=== PATIENT | female | born 1960 | race Caucasian/White ===

== ENCOUNTER → 2019-09-30 13:58 | Outpatient (CLI) | payer OTHER, SELFPAY ==
--- NOTE | ~2019-09-30 | MMUS_ITS ---
EXAMINATION: MM diagnostic marisela LT w alba, US breast LT complete HISTORY: Six-month follow-up for probably benign left breast masses TECHNIQUE: Craniocaudal, mediolateral, and mediolateral oblique 3-D tomosynthesis images of the left breast were performed and synthetic 2-D images were generated. CAD analysis was submitted and interpr eted. High resolution limited left breast ultrasound was performed. COMPARISON: 02/16/2019, 02/01/2019, 12/26/2017, 12/16/2016 BREAST PARENCHYMAL COMPOSITION: There are scattered areas of fibroglandular density. FINDINGS: MAMMOGRAPHIC FINDINGS: A mass in the middle third of the inner breast at the 9:00 location 9 cm deep to the nipple is stable dating back to 2016, consistent with a benign finding. No suspicious mass, calcification, or archite ctural distortion are identified. ULTRASOUND: There is a stable 6 mm x 3 mm oval, circumscribed, parallel, hypoechoic mass with no posterior featur es or internal vascularity and central echogenicity at the 1:00 location 3.5 cm from the nipple. Ther e is a 5 mm x 2 mm mass with similar sonographic features at the 1:00 location 4 cm from the nipple. A 3 mm cyst is present at the 12:00 location 7.5 cm from the nipple. IMPRESSION: 1. Stable probably benign left breast masses. 2. Recommend 6 month follow-up left diagnostic mammogram and ultrasound. BI-RADS category 3, probably benign findings. Reviewed, dictated and finalized at location A. IMPRESSION: 1. Stable probably benign left breast masses. 2. Recommend 6 month follow-up left diagnostic mammogram and ultrasound. BI-RADS category 3, probably benign findings.
== END ==
PROVIDERS: PCP Internal Medicine; Visit Provider Obstetrics & Gynecology Gynecology
DX: R92.8 Other abnormal and inconclusive findings on diagnostic imaging of breast (principal)
CPT/HCPCS: 76641; 77061; 77065; G0279

== ENCOUNTER → 2020-04-03 14:04 | Outpatient (CLI) | payer OTHER, SELFPAY ==
--- NOTE | ~2020-04-03 | MMUS_ITS ---
EXAMINATION: MM diagnostic marisela BI w alba, US breast LT complete HISTORY: Follow-up left breast masses TECHNIQUE: Additional 3-D tomosynthesis images of the breasts were performed and synthetic 2-D images were generated. CAD analysis was submitted and interpreted. High resolution Limited left breast ultr asound was performed. COMPARISON: Comparison to multiple prior studies sequentially, with oldest reviewed study dated 10/18. BREAST PARENCHYMAL COMPOSITION: There are scattered areas of fibroglandular density. FINDINGS: MAMMOGRAPHIC FINDINGS: The right breast is stable without evidence for malignancy. There are asymmetries in the upper outer quadrant of the left breast with focal 11 mm mass in the upper outer quadrant. There is an adjacent s maller mass measuring approximately 8 mm. ULTRASOUND: Left breast ultrasound: At 1:00, 4 cm from the nipple there is a 3 mm cyst. At 12:00, 3 cm from the n ipple, there is an oval hypoechoic mass measuring 1 cm with internal cystic changes, possibly benign cluster of microcysts. At 2:00, 2 cm from the nipple, there is an oval hypoechoic mass measuring 7 mm No internal vascularity or posterior features. At 2:00, 6 cm from the nipple there is a hypoechoic m ass measuring 5 mm with antiparallel configurations. Slightly irregular margins with subtle posterior shadowing. IMPRESSION: 1. Slightly irregular 5 mm mass in the left breast with antiparallel configuration and shadowing. 2. Ultrasound-guided left breast biopsy recommended. BI-RADS category 4, suspicious findings. Reviewed, dictated and finalized at location A. OR PROGRAM ANALYST IMPRESSION: 1. Slightly irregular 5 mm mass in the left breast with antiparallel configurat ion and shadowing. 2. Ultrasound-guided left breast biopsy recommended. BI-RADS category 4, suspicious findings.
== END ==
PROVIDERS: PCP Internal Medicine; Visit Provider Nurse Practitioner
DX: N63.11 Unspecified lump in the right breast, upper outer quadrant (principal); N60.02 Solitary cyst of left breast; N63.21 Unspecified lump in the left breast, upper outer quadrant
CPT/HCPCS: 76641; 77062; 77066; G0279

== ENCOUNTER → 2021-09-16 15:56 | Outpatient (CLI) | payer BC, SELFPAY ==
--- NOTE | ~2021-09-16 | MM_ITS ---
EXAMINATION: MM screening marisela BI w alba HISTORY: Screening TECHNIQUE: Craniocaudal and mediolateral oblique 3-D tomosynthesis images were obtained and synthetic 2-D images were generated. CAD analysis was submitted and interpreted. COMPARISON: Comparison to multiple prior studies sequentially, with oldest reviewed study dated 12/16. BREAST PARENCHYMAL COMPOSITION: There are scattered areas of fibroglandular density. FINDINGS: There is a new focal asymmetry laterally in the right breast on CC view, middle third. The left breast is stable without evidence for malignancy. IMPRESSION: 1. New focal right breast asymmetry lateral aspect of the right breast on CC view. 2. Additional mammographic views and possible breast ultrasound are recommended. BI-RADS Category 0: Incomplete: Needs additional imaging evaluation. Reviewed, dictated and finalized at location A. IMPRESSION: 1. New focal right breast asymmetry lateral aspect of the right breast on CC vi ew. 2. Additional mammographic views and possible breast ultrasound are recommended . BI-RADS Category 0: Incomplete: Needs additional imaging evaluation.
== END ==
PROVIDERS: PCP Internal Medicine; Visit Provider Nurse Practitioner
DX: Z12.31 Encounter for screening mammogram for malignant neoplasm of breast (principal); R92.8 Other abnormal and inconclusive findings on diagnostic imaging of breast
CPT/HCPCS: 77063; 77067

== ENCOUNTER → 2021-09-27 07:49 | Outpatient (CLI) | payer BC, SELFPAY ==
--- NOTE | ~2021-09-27 | MMUS_ITS ---
EXAMINATION: MM diagnostic marisela RT w alba, US breast RT limited HISTORY: Follow-up right breast asymmetry TECHNIQUE: Additional 3-D tomosynthesis images of the right breast were performed and synthetic 2-D i mages were generated. CAD analysis was submitted and interpreted. High resolution Limited right breas t ultrasound was performed. COMPARISON: Comparison to multiple prior studies sequentially, with oldest reviewed study dated 09/29. BREAST PARENCHYMAL COMPOSITION: Breast composed of scattered areas of fibroglandular density FINDINGS: MAMMOGRAPHIC FINDINGS: There are no suspicious masses, calcifications or architectural distortion in the right breast to sug gest malignancy. ULTRASOUND: Limited right breast ultrasound: At 8:00, 4 cm from the nipple there is a 2 mm cyst. No suspicious ma sses to suggest malignancy. IMPRESSION: 1. No evidence for malignancy in the right breast. 2. Routine yearly screening mammogram and regular clinical breast examination are recommended. BI-RADS Category 2: Benign finding(s). Reviewed, dictated and finalized at location L. IMPRESSION: 1. No evidence for malignancy in the right breast. 2. Routine yearly screening mammogram and regular clinical breast examination a re recommended. BI-RADS Category 2: Benign finding(s).
== END ==
PROVIDERS: PCP Internal Medicine; Visit Provider Obstetrics & Gynecology Gynecology
DX: R92.8 Other abnormal and inconclusive findings on diagnostic imaging of breast (principal)
CPT/HCPCS: 76642; 77061; 77065; G0279

== ENCOUNTER → 2022-04-26 09:37 | Outpatient (CLI) | payer BC, SELFPAY ==
--- NOTE | ~2022-04-26 | XR_ITS ---
Clinical Indication: Chest pain PA and lateral views of the chest: Comparison: None Findings: The lungs are clear, without evidence of focal consolidation or pleural effusion. Cardiome diastinal silhouette is within normal limits. Bones and soft tissues are unremarkable. Impression: Normal chest. Reviewed, dictated and finalized at location . C[employer]IER [employer]P Impression: Normal chest.
== END ==
PROVIDERS: PCP Internal Medicine; Visit Provider Internal Medicine
DX: R07.89 Other chest pain (principal)
CPT/HCPCS: 71046

== ENCOUNTER → 2022-04-28 10:13 | Outpatient (CLI) | payer BC, SELFPAY ==
--- NOTE | ~2022-04-28 | CT_ITS ---
EXAMINATION: CTA chest PE protocol DATE: 04/28/2022 10:40 INDICATION: Chest pain TECHNIQUE: Computed tomography angiography (CTA) of the chest was performed with 100 mL Omnipaque-350 intravenous contrast timed to evaluate the pulmonary arteries. Coronal maximum intensity projection 3D-reconstructions were created by the technologist. The dose-length product (DLP) was 731.23 mGy-cm. Automated exposure control and iterative reconstruction technique were employed. COMPARISON: None. FINDINGS: The pulmonary arteries are moderately well-opacified. No pulmonary embolism is identified. There is mild atelectasis. No pleural effusion or pneumothorax. Calcified pulmonary nodules are consi stent with old granulomatous disease. No pathologically enlarged thoracic lymph nodes are identified. The heart size is normal. There is a small sliding hiatal hernia. Cholelithiasis is noted. There is moderate thoracic spondylosis. IMPRESSION: 1. No pulmonary embolism or acute cardiopulmonary abnormality. Reviewed, dictated and finalized at location B. R OPERATOR HELPER
[2022-04-28 10:30] LABS: Estimated Glomerular Filt Rate > 60
== END ==
PROVIDERS: PCP Internal Medicine; Visit Provider Internal Medicine
DX: R07.89 Other chest pain (principal)
CPT/HCPCS: 71275; Q9967

== ENCOUNTER → 2022-10-03 13:16 | Outpatient (CLI) | payer BC, SELFPAY ==
--- NOTE | ~2022-10-03 | MM_ITS ---
EXAMINATION: MM screening marisela BI w alba HISTORY: Screening mammogram TECHNIQUE: Craniocaudal and mediolateral oblique 3-D tomosynthesis images were obtained and synthetic 2-D images were generated. CAD analysis was submitted and interpreted. COMPARISON: 09/27/2021 diagnostic right mammogram and limited right breast ultrasound 09/16/2021 bilateral screening mammogram 04/03/2020 diagnostic left mammogram and left complete ultrasound 02/01/2019 bilateral screening mammogram BREAST PARENCHYMAL COMPOSITION: There are scattered areas of fibroglandular density. FINDINGS: There is no evidence of suspicious mass, calcification, or architectural distortion to sugg est malignancy in either breast. There has been no suspicious interval change. IMPRESSION: 1. No mammographic evidence of malignancy. 2. Recommend routine screening mammography in one year. BI-RADS Category 1: Negative Reviewed, dictated and finalized at location A.
--- NOTE | ~2022-10-03 | DEXA_ITS ---
Bone Density Report Name: CURRY CHEEMA Age: 62 Sex: Female Ethnicity: White Date of : 1960 Indication: postmenopausal; screening for osteoporosis; height loss; Referring Provider: HAYLEY VELASCO Study: Bone densitometry was performed. Exam Date: October 03, 2022 Accession number: [id number] Bone Density: Region BMD T-score Z-score Classification AP Spine (L1-L4) 1.102 0.5 2.0 Normal Femoral Neck (Left) 1.142 2.6 4.0 Normal Total Hip (Left) 1.211 2.2 3.2 Normal Femoral Neck (Right) 1.102 2.3 3.6 Normal Total Hip (Right) 1.187 2.0 3.0 Normal Total Hip Mean 1.199 2.1 3.1 Normal World Health Organization criteria for BMD impression classify patients as: Normal (T-score at or above -1.0), Osteopenia (T-score between -1.0 and -2.5), or Osteoporosis (T-score at or below -2.5). 10-year Fracture Risk: FRAX not reported because: All T-scores for Spine Total, Hip Total, Femoral Neck at or above -1.0 Previous Exams: Region Exam Age BMD T-score BMD Change BMD Change Date g/cm2 vs Baseline vs Previous AP Spine(L1-L4) 10/03/2022 62 1.102 0.5 -0.055 -0.006 12/26/2017 57 1.108 0.6 -0.049 -0.049 10/12/2014 54 1.157 1.0 Total Hip(Left) 10/03/2022 62 1.211 2.2 -0.061 0.012 12/26/2017 57 1.199 2.1 -0.074 -0.074 10/12/2014 54 1.273 2.7 Total Hip(Right) 10/03/2022 62 1.187 2.0 -0.009 0.029* 12/26/2017 57 1.158 1.8 -0.038 -0.038 10/12/2014 54 1.196 2.1 *Denotes significance at 95% confidence level, LSC for AP Spine = 0.022 g/cm2, LSC for Total Hip = 0.027 g/cm2 Clinical Information Provided by Patient: Has used the following medications: Vitamin D, Calcium, MTV Patient maximum height was 69 Menopause Age: 55 No regular weight bearing exercise Does not regularly consume dairy products Drinks caffeinated beverages Onset of menses at age 15 Number of children 2 Impression: The patient has normal bone mass. No significant bone loss was observed. Discussion: BONE DENSITY IS ABOVE THE MINIMUM DESIRABLE LEVEL AT ALL SKELETAL SITES TESTED. This patient?s bone mineral density is above the minimum desirable level (T-score -1.0 or better) at all sites measured. The patient should follow a healthful lifestyle (good nutrition with adequate calcium and vitamin D, and appropriate weight-bearing exercise).
== END ==
PROVIDERS: PCP Internal Medicine; Visit Provider Advanced Practice Midwife
DX: Z12.31 Encounter for screening mammogram for malignant neoplasm of breast (principal); Z78.0 Asymptomatic menopausal state
CPT/HCPCS: 77063; 77067; 77080

== ENCOUNTER 2023-10-06 15:30 | Outpatient (CLI) | payer BC, SELFPAY ==
--- NOTE | ~2023-10-06 | MM_ITS ---
EXAMINATION: MM screening marisela BI w alba HISTORY: Screening TECHNIQUE: Craniocaudal and mediolateral oblique 3-D tomosynthesis images were obtained and synthetic 2-D images were generated. CAD analysis was submitted and interpreted. COMPARISON: Comparison to multiple prior studies sequentially, with oldest reviewed study dated 01/22. BREAST PARENCHYMAL COMPOSITION: Not dense: There are scattered areas of fibroglandular density. FINDINGS: There is no evidence of suspicious mass, calcification, or architectural distortion to sugg est malignancy in either breast. There has been no suspicious interval change. IMPRESSION: 1. No mammographic evidence of malignancy. 2. Recommend routine screening mammography in one year. BI-RADS Category 1: Negative Reviewed, dictated and finalized at location B.
== END 2023-10-06 15:31 ==
LOC: MICIMG 15:31
PROVIDERS: PCP Nurse Practitioner; Visit Provider Nurse Practitioner
DX: Z12.31 Encounter for screening mammogram for malignant neoplasm of breast (principal)
CPT/HCPCS: 77063; 77067

== ENCOUNTER 2024-10-11 08:20 | Outpatient (CLI) | payer BC, SELFPAY ==
--- NOTE | ~2024-10-11 | US_ITS ---
Exam: US aorta - 10/11/2024 8:26 CDT History: 64 years old Female with nicotine dependence Technique: Sonography of the abdominal aorta and proximal common iliac arteries was performed. Color Doppler was used. Comparison: None available. Findings: No abdominal aortic aneurysm seen. The right common iliac artery measures 1.3 cm. The left common iliac artery measures 1.2 cm. IMPRESSION: No aneurysm seen. Reviewed, dictated and finalized at location A. IMPRESSION: No aneurysm seen.
== END 2024-10-11 08:21 | disposition home or self-care (01) ==
PROVIDERS: PCP Internal Medicine; Visit Provider Internal Medicine
DX: F17.211 Nicotine dependence, cigarettes, in remission (principal)
CPT/HCPCS: 76775

== ENCOUNTER 2024-10-14 11:45 | Outpatient (CLI) | payer BC, SELFPAY ==
--- NOTE | ~2024-10-14 | CT_ITS ---
CLINICAL INDICATION: Nicotine dependence COMPARISON: 04/28/2022. TECHNIQUE: Multiple contiguous axial images of the chest was performed without the administration of intravenous contrast. This CT examination was performed utilizing dose reduction techniques. DLP: 281 mGy-cm FINDINGS/OBSERVATIONS: LUNG:Trace cylindrical bronchiectasis, an interval change The lungs are otherwise clear. HEART: The heart is of normal size, without pericardial effusion. MEDIASTINUM: No pathologically enlarged or morphologically suspicious lymph nodes are identified within the medias tinum, bilateral axilla, within the soft tissues of the anterior chest wall. SOFT TISSUES OF THE CHEST: Unremarkable. BONES OF THE CHEST: No acute fracture. No lytic or blastic lesions are identified. UPPER ABDOMEN: Multiple stones within the gallbladder, which is otherwise unremarkable. IMPRESSION: Lung-RADS category 1: Negative. Continue annual screening with noncontrast low-dose chest CT in 12 mo nths. Cholelithiasis Interval development of cylindrical bronchiectasis. Reviewed, dictated and finalized at location A. IMPRESSION: Lung-RADS category 1: Negative. Continue annual screening with noncontrast low- dose chest CT in 12 months. Cholelithiasis Interval development of cylindrical bronchiectasis.
--- NOTE | ~2024-10-14 | DEXA_ITS ---
Bone Density Report Name: CURRY CHEEMA Age: 64 Sex: Female Ethnicity: White Date of : 1960 Indication: postmenopausal; screening for osteoporosis; height loss; Referring Provider: Anny, Yajaira Study: Bone densitometry was performed. Exam Date: October 14, 2024 Accession number: [id number] Bone Density: Region BMD T-score Z-score Classification AP Spine(L1, L2, L3) 1.087 0.6 2.3 Normal Femoral Neck (Left) 1.057 1.9 3.3 Normal Total Hip (Left) 1.218 2.3 3.4 Normal Femoral Neck (Right) 1.066 2.0 3.4 Normal Total Hip (Right) 1.205 2.2 3.3 Normal Femoral Neck Mean 1.062 1.9 3.4 Normal Total Hip Mean 1.212 2.2 3.4 Normal World Health Organization criteria for BMD impression classify patients as: Normal (T-score at or above -1.0), Osteopenia (T-score between -1.0 and -2.5), or Osteoporosis (T-score at or below -2.5). 10-year Fracture Risk: FRAX not reported because: All T-scores for Spine Total, Hip Total, Femoral Neck at or above -1.0 Clinical Information Provided by Patient: Has used the following medications: Vitamin D, Calcium, multi Patient maximum height was 70 Menopause Age: 64 Does not regularly consume dairy products Drinks caffeinated beverages Onset of menses at age 15 Number of children 2 Impression: The patient has normal bone mass. Discussion: LOW RISK OF FRACTURE; BONE DENSITY IS WELL ABOVE THE MINIMUM DESIRABLE LEVEL AND ABOVE AVERAGE FOR AGE AND SEX AT ALL SKELETAL SITES TESTED. This person's bone density is above expected limits for age and sex. This is rarely clinically significant, but should be pursued if there are significant musculoskeletal complaints. The patient should follow a healthful lifestyle (good nutrition with adequate calcium and vitamin D, and appropriate weight-bearing exercise). Follow-Up: Consider repeating this study in 5 years or sooner if there is some new clinical indication. Reported by: PAOLA on 10/17/2024 11:07:00 AM. Reviewed, dictated and finalized at location A.
--- NOTE | ~2024-10-14 | MM_ITS ---
EXAMINATION: MM screening marisela BI w alba HISTORY: Screening TECHNIQUE: Craniocaudal and mediolateral oblique 3-D tomosynthesis images were obtained and synthetic 2-D images were generated. CAD analysis was submitted and interpreted. COMPARISON: Comparison to multiple prior studies sequentially, with oldest reviewed study dated 09/29. BREAST PARENCHYMAL COMPOSITION: Not Dense: The breasts are almost entirely fatty. FINDINGS: Developing focal asymmetry in the upper outer quadrant of the right breast, middle third. T he left breast is stable without evidence for malignancy. IMPRESSION: 1. Developing right breast asymmetry, upper outer quadrant, middle third. 2. Additional mammographic views and possible breast ultrasound are recommended. BI-RADS Category 0: Incomplete: Needs additional imaging evaluation. Reviewed, dictated and finalized at location A. IMPRESSION: 1. Developing right breast asymmetry, upper outer quadrant, middle third. 2. Additional mammographic views and possible breast ultrasound are recommended . BI-RADS Category 0: Incomplete: Needs additional imaging evaluation.
--- OUTSIDE RECORDS SUMMARY | 2024-10-14 11:50 | XMS_ITS | Data Portability ---
Author Organization [facility], [employer] Address [address] [address] Assessment Encounter Date Assessment Date Assessment LastModified by Organization Details LastModified Time 12/03/2022 12/03/2022 Patient presente d for follow up. Studies ordered as below. Discussed plan with patient/caregiver , who expressed understanding. Follow up as noted below. Not available 12/03/2022 14:11:45 08/11/2023 08/11/2023 Patient presente d for follow up. Studies ordered as below. Discussed plan with patient/caregiver , who expressed understanding. Follow up as noted below. Not available 08/11/2023 09:35:03 2024 2024 Recommends healthy nutrition, including a diet rich in fruits and vegetables, minimizing simple carbohydrates, salt, and saturated fats. Encouraged regular cardiovascular exercise such as walking at least 30 minutes daily, 5 times per week. Not available 2024 10:32:55 09/20/2024 09/20/2024 Recommends healthy nutrition, including a diet rich in fruits and vegetables, minimizing simple carbohydrates, salt, and saturated fats. Encouraged regular cardiovascular exercise such as walking at least 30 minutes daily, 5 times per week. Not available 09/20/2024 09:59:01 Plan of Treatment Reminders Order Date Submit Date Provider Last Modified By Organization Details Last Modified Time Details Appointments ESTABLISH ED PATIENT 15 2024 10:45A Remi Blount MD Not available Not available Not available Lab lipid panel, serum 2024 025 [id number] Qoiza [facility], [facility] [address], [place], [address], 09/27/2024 08:09:35 CMP, serum or plasma 2024 025 [place] [address] [facility], [address], [address], [place], [address], 09/27/2024 08:09:36 microalbu min/creat inine, mass ratio, urine 2024 025 [place] [address] [facility], [address], [place], [address], 09/27/2024 08:09:36 TSH + free T4, serum 2024 025 [place] [address] [facility], [address], [place], [address], 09/27/2024 08:09:36 T3, free, serum or plasma 2024 025 [place] [address] [facility], [address], [place], [address], 09/27/2024 08:09:36 CBC w/ auto diff 2024 025 [facility], [address], [place], [address], 09/27/2024 08:09:36 microalbu min/creat inine, mass ratio, urine 2023 025 [facility], [address], [place], [address], 09/18/2024 08:52:43 TSH + free T4, serum 2023 025 [facility], [address], [place], [address], 09/18/2024 08:52:44 T3, free, serum or plasma 2023 025 ST[facility], [address], [address], [place], [address], 09/18/2024 08:52:46 CBC w/ auto diff 2023 025 [facility]ISH [facility], [address], [address], [place], [address], 09/18/2024 08:52:45 lipid panel, serum 2023 025 [facility], [address], [address], [place], [address], 09/18/2024 08:52:42 CMP, serum or plasma 2023 025 [facility], [address], [address], [place], [address], 09/18/2024 08:52:45 microalbu min/creat inine, mass ratio, urine 2023 024 [facility], [address], [address], [place], [address], 08/18/2023 08:49:20 TSH + free T4, serum 2023 024 [facility], [address], [address], [place], [address], 08/18/2023 08:49:21 T3, free, serum or plasma 2023 024 [facility], [address], [address], [place], [address], 08/18/2023 08:49:21 CBC w/ auto diff 2023 024 [facility], [address], [address], [place], [address], 08/18/2023 08:49:21 lipid panel, serum 2023 024 [facility], [address], [address], [place], [address], 08/18/2023 08:49:20 CMP, serum or plasma 2023 024 [facility], [address], [address], [place], [address], 08/18/2023 08:49:20 lipid panel, serum 2022 023 [facility], [address], [address], [place], [address], 12/10/2022 08:18:01 CMP, serum or plasma 2022 023 [facility], [address], [address], [place], [address], 12/10/2022 08:18:01 vitamin D, 25-hydrox y, total, serum 2022 023 [facility], [address], [address], [place], [address], 12/10/2022 08:18:01 microalbu min/creat inine, mass ratio, urine 2022 023 [facility], [address], [place], [address], 12/10/2022 08:18:01 TSH + free T4, serum 2022 023 [facility], [address], [place], [address], 12/10/2022 08:18:02 T3, free, serum or plasma 2022 023 [facility], [address], [place], [address], 12/10/2022 08:18:02 HIV 1+2 Ab + HIV1 p24 Ag, quantitat jose armando immunoass ay, serum 2022 023 jessica Qoiza [facility], [address], [address], [place], [address], 12/10/2022 08:18:01 Referral gastroent erologist referral 2023 024 jessica Sevilla MD, [address], [place], [address], 2024 10:48:05 gastroent erologist referral 2023 024 iggy Sevilla MD, [address], [address], [place], [address], 08/11/2023 09:52:06 gastroent erologist referral 2022 023 SHARIF Sevilla MD, [address], [address], [place], [address], 01/04/2023 18:08:50 Procedures None recorded. Surgeries None recorded. Imaging LDCT, chest, for lung cancer screening [address] [facility], [address], [place], [address], 09/27/2024 08:09:27 US, abdomen + pelvis [address] [facility], [address], [address], [place], [address], 09/27/2024 08:09:27 bone density [address] [facility], [address], [place], [address], 10/04/2024 08:09:16 bone density 2022 023 [facility], [address], [place] [address], [place], [address], 12/17/2022 09:21:54 Medication Orders rosuvasta tin 10 mg tablet 2024 025 [facility] [address], [address] [place] [address], [address], 09/20/2024 10:23:47 metformin ER 500 mg tablet,ex tended release 24 hr 2024 025 [facility] [address], [address] [place] [address], [address], 09/20/2024 10:23:48 losartan 50 mg tablet 2024 025 [facility] [address], [address] [place] [address], [address], 09/20/2024 10:23:48 amlodipin e 5 mg tablet 2024 025 [facility] [address], [address] [place] [address], [address], 09/20/2024 10:23:47 metformin ER 500 mg tablet,ex tended release 24 hr 2023 024 [facility] [address], [address] [place] [address], [address], 2024 10:45:26 losartan 50 mg tablet 2023 024 [place] [address], [address] [place] [address], [address], 2024 10:44:27 amlodipin e 5 mg tablet 2023 024 [facility] [address], [address] [place] [address], [address], 2024 10:44:26 rosuvasta tin 10 mg tablet 2023 024 [facility] [address], [address] [place] [address], [address], 2024 10:44:24 losartan 50 mg tablet 2023 024 [facility] [address], [address] [place] [address], [address], 08/11/2023 09:35:18 amlodipin e 5 mg tablet 2023 024 [facility] [address], [address] [place] [address], [address], 08/11/2023 09:35:21 levothyro xine 137 mcg tablet [address], [address] [place] [address], [address], 03/23/2024 20:39:48 rosuvasta tin 10 mg tablet 2023 024 [facility] [address], [address] [place] [address], [address], 08/11/2023 09:35:17 rosuvasta tin 10 mg tablet 2022 023 [facility], [address] [place] [address], [address], 12/03/2022 14:12:26 losartan 50 mg tablet 2022 023 [facility] [address], [address] [place] [address], [address], 12/03/2022 14:12:25 amlodipin e 5 mg tablet 2022 023 [facility] [address], [address] [place] [address], [address], 12/03/2022 14:12:25 levothyro xine 137 mcg tablet 2022 023 [facility], [address] [facility], [place], [address], 03/23/2024 20:39:48 Patient TargetsNo targets recorded. Patient Instructions Encounter Date Encounter Id Patient Instructions Last Modified By Organization Details Last Modified Time 12/03/2022 [id number] advised to lose weight Not available 12/03/2022 14:12:04 08/11/2023 [id number] advised to lose weight Not available 08/11/2023 09:35:10 2024 [id number] advised to lose weight Not available 2024 10:44:09 09/20/2024 [id number] advised to lose weight Not available 09/20/2024 10:23:35 pre/post bronchodilator spirometry* SHARIF Not available 09/20/2024 11:34:00 Reason for Referral Distribution Operation Supervisor Referral for Screening for malignant neoplasm of colon Referring Physician: Augustus Blount, Internal Medicine, Encounter Date: 12/03/2022 Distribution Operation Supervisor Referral for Screening for malignant neoplasm of colon Referring Physician: Augustus Blount Internal Medicine, Encounter Date: 08/11/2023 Distribution Operation Supervisor Referral for Screening for malignant neoplasm of colon Referring Physician: Augustus Blount Internal Medicine, Encounter Date: 2024 Results Created Date Observation Date Name Description Value Unit Range Abnormal Flag Note LastModifiedBy Organization Detail LastModifiedTime 04/26/1904/27/2022 LIPID PANEL WITH REFLE X TO DIREC T LDL cholesterol, total 204 mg/dL <200 high Not Available [facility] [address] [place], [address], 04/27/2022 16:01:11 04/26/1904/27/2022 LIPID PANEL WITH REFLE X TO DIREC T LDL HDL cholesterol 64 mg/dL > or = 50 normal Not Available Qoiza [facility] [address] [place], [address], 04/27/2022 16:01:11 04/26/19 23 04/27/2022 LIPID PANEL WITH REFLE X TO DIREC T LDL triglyceride s 77 mg/dL <150 normal Not Available [place] [id number] [place], [address], 04/27/2022 16:01:11 04/26/19 23 04/27/2022 LIPID PANEL WITH REFLE X TO DIREC T LDL LDL-choleste rol 123 mg/dL _(leyla c) high Refer ence range : <100 Misty able range <100 mg/dL for prima ry preve ntion ; <70 mg/dL for patie nts with CHD or diabe tic patie nts with > or = 2 CHD risk facto rs. LDL-C is now calcu lated using the Honey n-Hop kins calcu maddy n, which is a valid ated novel ruben haynesi yuko stephenste r accur acy than the Fried michael equat ion in the estim ation of LDL-C . Honey asencio SS et al. RICHMOND. 2013; 310(1 9): 2061- 2068 (http ://ed ucati on.Qu K[facility]. com/f aq/FA Q164) Not Available [place] [id number] [place], [address], 04/27/2022 16:01:11 04/26/19 23 04/27/2022 LIPID PANEL WITH REFLE X TO DIREC T LDL chol/HDLC ratio 3.2 (calc ) <5.0 normal Not Available [facility] [address] [place] [address], [address], 04/27/2022 16:01:11 04/26/19 23 04/27/2022 LIPID PANEL WITH REFLE X TO DIREC T LDL non HDL cholesterol 140 mg/dL _(leyla c) <130 high For patie nts with diabe rizwana plus 1 major ASCVD risk facto r, treat ing to a non-H DL-C goal of <100 mg/dL (LDL- C of <70 mg/dL ) is consi dered a thera peuti c optio n. Not Available [place] [address] [place], [address], 04/27/2022 16:01:11 04/26/19 23 04/27/2022 ALBUM IN, RANDO M URINE W/CRE ATINI NE creatinine, random urine 174 mg/dL 20-275 normal Not Available [place] [address] [place], [address], 04/27/2022 16:01:12 04/26/19 23 04/27/2022 ALBUM IN, RANDO M URINE W/CRE ATINI NE albumin, urine 0.6 mg/dL see note: normal Refer ence Range : Refer ence Range Not estab lishe d Not Available [place] [address] [place], [address], 04/27/2022 16:01:12 04/26/19 23 04/27/2022 ALBUM IN, RANDO M URINE W/CRE ATINI NE albumin/crea tinine ratio, random urine 3 mcg/m g_cre at <30 normal The ADA defin es abnor malit ies in album in excre tion as follo ws: Album inuri a Categ ory Resul t (mcg/ mg creat inine ) Mariam l to Mildl y incre ased <30 Moder ately incre ased 30-29 9 Sever km incre ased > OR = 300 The ADA recom mends that at least two of three speci mens colle cted withi n a 3-6 month perio d be abnor mal befor e consi benjamin g a patie nt to be withi n a diagn ostic categ ory. Not Available [address], [address], 04/27/2022 16:01:12 04/26/19 23 04/27/2022 TSH+F REE T4 TSH 2.03 mIU/L 0.40-4 .50 normal Not Available [address], [address], 04/27/2022 16:01:13 04/26/19 23 04/27/2022 TSH+F REE T4 T4, free 1.3 NG/dL 0.8-1. 8 normal Not Available [address], [address], 04/27/2022 16:01:13 04/26/19 23 04/27/2022 COMPR EHENS JOSE ARMANDO METAB OLIC PANEL glucose 94 mg/dL 65-99 normal Fasti ng refer ence inter nehal Not Available [address], [address], 04/27/2022 16:01:14 04/26/19 23 04/27/2022 COMPR EHENS JOSE ARMANDO METAB OLIC PANEL urea nitrogen (BUN) 9 mg/dL 7-25 normal Not Available [address], [address], 04/27/2022 16:01:14 04/26/19 23 04/27/2022 COMPR EHENS JOSE ARMANDO METAB OLIC PANEL creatinine 0.87 mg/dL 0.50-1 .05 normal Not Available [address], [address], 04/27/2022 16:01:14 04/26/19 23 04/27/2022 COMPR EHENS JOSE ARMANDO METAB OLIC PANEL eGFR 76 mL/mi n/1.7 3m2 > or = 60 normal The eGFR is based on the CKD-E PI 2020 equat ion. To calcu late the new eGFR from a previ ous Creat inine or Cysta tin C resul t, go to https ://andreas jenkins/robb garcia/ kdoqi /gfr% 5Fcal culat or Not Available [address], [address], 04/27/2022 16:01:14 04/26/19 23 04/27/2022 COMPR EHENS JOSE ARMANDO METAB OLIC PANEL BUN/creatini ne ratio NOT APPLIC ABLE (calc ) 6-22 Not Available [address], [address], 04/27/2022 16:01:14 04/26/19 23 04/27/2022 COMPR EHENS JOSE ARMANDO METAB OLIC PANEL sodium 140 mmol/ L 135-14 6 normal Not Available [address], [address], 04/27/2022 16:01:14 04/26/19 23 04/27/2022 COMPR EHENS JOSE ARMANDO METAB OLIC PANEL potassium 4.3 mmol/ L 3.5-5. 3 normal Not Available [address], [address], 04/27/2022 16:01:14 04/26/19 23 04/27/2022 COMPR EHENS JOSE ARMANDO METAB OLIC PANEL chloride 107 mmol/ L 98-110 normal Not Available [address], [address], 04/27/2022 16:01:14 04/26/19 23 04/27/2022 COMPR EHENS JOSE ARMANDO METAB OLIC PANEL carbon dioxide 27 mmol/ L 20-32 normal Not Available [address], [address], 04/27/2022 16:01:14 04/26/19 23 04/27/2022 COMPR EHENS JOSE ARMANDO METAB OLIC PANEL calcium 9.3 mg/dL 8.6-10 .4 normal Not Available [address], [address], 04/27/2022 16:01:14 04/26/19 23 04/27/2022 COMPR EHENS JOSE ARMANDO METAB OLIC PANEL protein, total 6.5 g/dL 6.1-8. 1 normal Not Available [address], [address], 04/27/2022 16:01:14 04/26/19 23 04/27/2022 COMPR EHENS JOSE ARMANDO METAB OLIC PANEL albumin 4.3 g/dL 3.6-5. 1 normal Not Available [address], [address], 04/27/2022 16:01:14 04/26/19 23 04/27/2022 COMPR EHENS JOSE ARMANDO METAB OLIC PANEL globulin 2.2 g/dL_ (calc ) 1.9-3. 7 normal Not Available [address], [address], 04/27/2022 16:01:14 04/26/19 23 04/27/2022 COMPR EHENS JOSE ARMANDO METAB OLIC PANEL albumin/glob ulin ratio 2.0 (calc ) 1.0-2. 5 normal Not Available [address], [place], [address], 04/27/2022 16:01:14 04/26/19 23 04/27/2022 COMPR EHENS JOSE ARMANDO METAB OLIC PANEL bilirubin, total 0.6 mg/dL 0.2-1. 2 normal Not Available [address], [address], 04/27/2022 16:01:14 04/26/19 23 04/27/2022 COMPR EHENS JOSE ARMANDO METAB OLIC PANEL alkaline phosphatase 78 U/L 37-153 normal Not Available [place] [address] [place], [address], 04/27/2022 16:01:14 04/26/19 23 04/27/2022 COMPR EHENS JOSE ARMANDO METAB OLIC PANEL AST 21 U/L 10-35 normal Not Available [address], [address], 04/27/2022 16:01:14 04/26/19 23 04/27/2022 COMPR EHENS JOSE ARMANDO METAB OLIC PANEL ALT 25 U/L 6-29 normal Not Available [address], [address], 04/27/2022 16:01:14 04/26/19 23 04/27/2022 D-DIM ER, QUANT ITATI VE D-dimer, quantitative 0.60 mcg/m L_feu <0.50 high The D-Dim er test is used frequ ently to exclu de an acute PE or DVT. In patie nts with a low to moder ate clini leyla risk asses sment and a D-Dim er resul t <0.50 mcg/m L FEU, the likel ihood of a PE or DVT is very low. Howev er, a throm boemb olic event shoul d not be exclu ded solel y on the basis of the D-Dim er level . Incre ased level s of D-Dim er are assoc iated with a PE, DVT, DIC, malig cely es, infla mmati on, sepsi s, surge ry, traum a, pregn flakito, and advan cing patie nt age. [[place] 2006 11:29 5(2): 199-2 07] For addit ional infor edel chu refer to: http: //darius holman gnost ics.c om/fa q/FAQ 149 (This link is being provi ded for infor costa lara/ tristian odonnell purpo ses only) Not Available [facility] [address] [place], [address], 04/27/2022 16:01:14 04/26/19 23 04/27/2022 T3, FREE T3, free 3.0 pg/mL 2.3-4. 2 normal Not Available [facility] [address], [address], 04/27/2022 16:01:15 04/26/19 23 04/27/2022 VITAM IN D,25- OH,TO THIERRY,I A vitamin D,25-oh,tota l,ia 39 NG/mL 30-100 normal Vitam in D Statu s 25-OH Vitam in D: Defic iency : <20 ng/mL Insuf ficie ncy: 20 - 29 ng/mL Optim al: > or = 30 ng/mL For 25-OH Vitam in D testi ng on patie nts on D2-mc pplem entat ion and patie nts for whom quant itati on of D2 and D3 fract ions is requi red, the [facility] Assur eD(TM ) 25-OH VIT D, (D2,D 3), LC/MS /MS is recom gamal d: order code [id number] (dianne ents >2yrs ). See Note 1 Note 1 For addit ional infor edel chu refer to http: //[facility] leena asencio.Brandon stDia gnost ics.c om/fa q/FAQ 199 (This link is being provi ded for infor costa lara/ tristian odonnell purpo ses only. ) Not Available [facility] [email or web address] [facility] [address] [place], [address], 04/27/2022 16:01:15 04/26/19 23 04/27/2022 HEMOG LOBIN A1C hemoglobin A1C 5.2 %_of_ total _HGB <5.7 normal For the purpo se of john navarro for the prese nce of diabe rizwana: <5.7% Consi stent with the absen ce of diabe rizwana 5.7-6 .4% Consi stent with incre ased risk for diabe rizwana (pred iabet es) > or =6.5% Consi stent with diabe rizwana This assay resul t is consi stent with a decre ased risk of diabe rizwana. Curre ntly, no conse nsus exist s merline huntley use of hemog lobin A1c for diagn osis of diabe rizwana in child carla. Accor ding to Ameri can Diabe rizwana Assoc iatio n (ADA) guide lines , hemog lobin A1c <7.0% repre sents optim al contr ol in non-p regna nt diabe tic patie nts. Diffe rent metri cs may apply to speci fic patie nt popul ation s. [facility] al [facility] in Diabe rizwana(A DA). Not Available [facility] [address] [address] [place], [address], 04/27/2022 16:01:16 06/10/19 23 06/09/2022 justin metry testi ng* Spirometry Not Available [facility], [facility] [address], [place], [address], 05/14/2022 13:54:46 12/14/19 23 12/14/2022 LIPID PANEL , STAND CHLOE cholesterol, total 127 mg/dL <200 normal Not Available [facility] [address] [address] [place], [address], 12/14/2022 16:08:08 12/14/19 23 12/14/2022 LIPID PANEL , STAND CHLOE HDL cholesterol 51 mg/dL > or = 50 normal Not Available [facility] [address] [address] [place], [address], 12/14/2022 16:08:08 12/14/19 23 12/14/2022 LIPID PANEL , STAND CHLOE triglyceride s 90 mg/dL <150 normal Not Available [facility] [place] [address] [address] [place], [address], 12/14/2022 16:08:08 12/14/19 23 12/14/2022 LIPID PANEL , STAND CHLOE LDL-choleste rol 59 mg/dL _(leyla c) normal Refer ence range : <100 Misty able range <100 mg/dL for prima ry preve ntion ; <70 mg/dL for patie nts with CHD or diabe tic patie nts with > or = 2 CHD risk facto rs. LDL-C is now calcu lated using the Honey n-Hop kins calcu latpily n, which is a valid ated novel metho d provi ding usha r accur acy than the Fried michael equat ion in the estim ation of LDL-C . Honey asencio SS et al. RICHMOND. 2013; 310(1 9): 2061- 2068 (http ://ed ucati on.Kuldip kahnMadison Plus Select / HeyGorgeous.com. com/f aq/FA Q164) Not Available [address], [address], 12/14/2022 16:08:08 12/14/19 23 12/14/2022 LIPID PANEL , STAND CHLOE chol/HDLC ratio 2.5 (calc ) <5.0 normal Not Available [address], [place], [address], 12/14/2022 16:08:08 12/14/1912/14/2022 LIPID PANEL , STAND CHLOE non HDL cholesterol 76 mg/dL _(leyla c) <130 normal For patie nts with diabe rizwana plus 1 major ASCVD risk facto r, treat ing to a non-H DL-C goal of <100 mg/dL (LDL- C of <70 mg/dL ) is consi dered a thera peuti c optio n. Not Available [place] [address] [place], [address], 12/14/2022 16:08:08 12/14/19 23 12/14/2022 ALBUM IN, RANDO M URINE W/CRE ATINI NE creatinine, random urine 88 mg/dL 20-275 normal Not Available [place] [address] [place], [address], 12/14/2022 16:08:09 12/14/1912/14/2022 ALBUM IN, RANDO M URINE W/CRE ATINI NE albumin, urine 1.1 mg/dL see note: normal Refer ence Range : Refer ence Range Not estab lishe d Not Available [place] [address] [place], [address], 12/14/2022 16:08:09 12/14/19 23 12/14/2022 ALBUM IN, RANDO M URINE W/CRE ATINI NE albumin/crea tinine ratio, random urine 13 mcg/m g_cre at <30 normal The ADA defin es abnor malit ies in album in excre tion as follo ws: Album inuri a Categ ory Resul t (mcg/ mg creat inine ) Mariam l to Mildl y incre ased <30 Moder ately incre ased 30-29 9 Sever km incre ased > OR = 300 The ADA recom mends that at least two of three speci mens colle cted withi n a 3-6 month perio d be abnor mal befor e consi benjamin g a patie nt to be withi n a diagn ostic categ ory. Not Available [facility] [address] [facility] [place], [address], 12/14/2022 16:08:09 12/14/1912/14/2022 HIV 1/2 ANTIG EN/AN TIBOD Y,FOU RTH GENER ATION W/RFL HIV Ag/Ab, 4TH gen NON-RE ACTIVE non-re active normal HIV-1 antig en and HIV-1 /HIV- 2 antib odies were not detec maria esther. There is no labor atory evide nce of HIV infec tion. PLEAS E NOTE: This infor matio n has been discl osed to you from recor ds whose confi denti ality may be prote cted by state law. If your state requi res such prote ction , then the state law prohi bits you from eileen g any furth er discl osure of the infor matio n witho ut the speci fic writt en conse nt of the perso n to whom it perta ins, or as other byrd permi tted by law. A gener al autho rizat ion for the relea se of medic al or other infor matio n is NOT suffi cient for this purpo se. For addit ional infor matio n pleas e refer to http: //edu leena asencio.que stdia gnost ics.c om/fa q/FAQ 106 (This link is being provi ded for infor matio nal/ educa romero l purpo ses only. ) The perfo rmanc e of this assay has not been clini destiney valid ated in patie nts less than 2 years old. Not Available [address], [address], 12/14/2022 16:08:10 12/14/19 23 12/14/2022 TSH+F REE T4 TSH 2.55 mIU/L 0.40-4 .50 normal Not Available [facility] [address], [address], 12/14/2022 16:08:11 12/14/1912/14/2022 TSH+F REE T4 T4, free 1.2 NG/dL 0.8-1. 8 normal Not Available [address], [address], 12/14/2022 16:08:11 12/14/19 23 12/14/2022 COMPR EHENS JOSE ARMANDO METAB OLIC PANEL glucose 85 mg/dL 65-99 normal Fasti ng refer ence inter nehal Not Available [address], [address], 12/14/2022 16:08:12 12/14/19 23 12/14/2022 COMPR EHENS JOSE ARMANDO METAB OLIC PANEL urea nitrogen (BUN) 10 mg/dL 7-25 normal Not Available [address], [address], 12/14/2022 16:08:12 12/14/1912/14/2022 COMPR EHENS JOSE ARMANDO METAB OLIC PANEL creatinine 0.83 mg/dL 0.50-1 .05 normal Not Available [facility] [address], [address], 12/14/2022 16:08:12 12/14/1912/14/2022 COMPR EHENS JOSE ARMANDO METAB OLIC PANEL eGFR 80 mL/mi n/1.7 3m2 > or = 60 normal Not Available [facility] [address], [address], 12/14/2022 16:08:12 12/14/19 23 12/14/2022 COMPR EHENS JOSE ARMANDO METAB OLIC PANEL BUN/creatini ne ratio SEE NOTE: (calc ) 6-22 Not Repor maria esther: BUN and Creat inine are withi n refer ence range . Not Available [address], [address], 12/14/2022 16:08:12 12/14/19 23 12/14/2022 COMPR EHENS JOSE ARMANDO METAB OLIC PANEL sodium 142 mmol/ L 135-14 6 normal Not Available [address], [address], 12/14/2022 16:08:12 12/14/19 23 12/14/2022 COMPR EHENS JOSE ARMANDO METAB OLIC PANEL potassium 4.7 mmol/ L 3.5-5. 3 normal Not Available [address], [place], [address], 12/14/2022 16:08:12 12/14/19 23 12/14/2022 COMPR EHENS JOSE ARMANDO METAB OLIC PANEL chloride 106 mmol/ L 98-110 normal Not Available [address], [address], 12/14/2022 16:08:12 12/14/19 23 12/14/2022 COMPR EHENS JOSE ARMANDO METAB OLIC PANEL carbon dioxide 26 mmol/ L 20-32 normal Not Available [address], [address], 12/14/2022 16:08:12 12/14/19 23 12/14/2022 COMPR EHENS JOSE ARMANDO METAB OLIC PANEL calcium 9.3 mg/dL 8.6-10 .4 normal Not Available [address], [address], 12/14/2022 16:08:12 12/14/19 23 12/14/2022 COMPR EHENS JOSE ARMANDO METAB OLIC PANEL protein, total 6.4 g/dL 6.1-8. 1 normal Not Available [address], [address], 12/14/2022 16:08:12 12/14/19 23 12/14/2022 COMPR EHENS JOSE ARMANDO METAB OLIC PANEL albumin 4.2 g/dL 3.6-5. 1 normal Not Available [address], [address], 12/14/2022 16:08:12 12/14/19 23 12/14/2022 COMPR EHENS JOSE ARMANDO METAB OLIC PANEL globulin 2.2 g/dL_ (calc ) 1.9-3. 7 normal Not Available [address], [address], 12/14/2022 16:08:12 12/14/19 23 12/14/2022 COMPR EHENS JOSE ARMANDO METAB OLIC PANEL albumin/glob ulin ratio 1.9 (calc ) 1.0-2. 5 normal Not Available [address], [address], 12/14/2022 16:08:12 12/14/19 23 12/14/2022 COMPR EHENS JOSE ARMANDO METAB OLIC PANEL bilirubin, total 0.7 mg/dL 0.2-1. 2 normal Not Available [address], [address], 12/14/2022 16:08:12 12/14/19 23 12/14/2022 COMPR EHENS JOSE ARMANDO METAB OLIC PANEL alkaline phosphatase 67 U/L 37-153 normal Not Available [address], [address], 12/14/2022 16:08:12 12/14/19 23 12/14/2022 COMPR EHENS JOSE ARMANDO METAB OLIC PANEL AST 24 U/L 10-35 normal Not Available [address] [address] [place], [address], 12/14/2022 16:08:12 12/14/19 23 12/14/2022 COMPR EHENS JOSE ARMANDO METAB OLIC PANEL ALT 32 U/L 6-29 high Not Available [facility] [address] [address] [place], [address], 12/14/2022 16:08:12 12/14/19 23 12/14/2022 T3, FREE T3, free 3.4 pg/mL 2.3-4. 2 normal Not Available [facility] [address] [address] [place], [address], 12/14/2022 16:08:12 12/14/19 23 12/14/2022 VITAM IN D,25- OH,TO THIERRY,I A vitamin D,25-oh,tota l,ia 64 NG/mL 30-100 normal Vitam in D Statu s 25-OH Vitam in D: Defic iency : <20 ng/mL Insuf ficie ncy: 20 - 29 ng/mL Optim al: > or = 30 ng/mL For 25-OH Vitam in D testi ng on patie nts on D2-mc pplem entat ion and patie nts for whom quant itati on of D2 and D3 fract ions is requi red, the [facility] e[facility](TM ) 25-OH VIT D, (D2,D 3), LC/MS /MS is recom gamal d: order code 98043 (dianne ents >2yrs ). See Note 1 Note 1 For addit ional infor edel chu refer to http: //darius Holman gnost ics.c om/fa q/FAQ 199 (This link is being provi ded for infor costa lara/ tristian odonnell purpo ses only. ) Not Available [facility] [address] [address] [place], [address], 12/14/2022 16:08:13 03/19/20 24 03/20/2024 LIPID PANEL , STAND CHLOE cholesterol, total 129 mg/dL <200 normal Not Available [address] [address] [place], [address], 03/20/2024 10:20:15 03/19/20 24 03/20/2024 LIPID PANEL , STAND CHLOE HDL cholesterol 59 mg/dL > or = 50 normal Not Available [facility] [address] [address] [place], [address], 03/20/2024 10:20:15 03/19/20 24 03/20/2024 LIPID PANEL , STAND CHLOE triglyceride s 76 mg/dL <150 normal Not Available [facility] [address] [address] [place], [address], 03/20/2024 10:20:15 03/19/20 24 03/20/2024 LIPID PANEL , STAND CHLOE LDL-choleste rol 54 mg/dL _(leyla c) normal Refer ence range : <100 Misty able range <100 mg/dL for prima ry preve ntion ; <70 mg/dL for patie nts with CHD or diabe tic patie nts with > or = 2 CHD risk facto rs. LDL-C is now calcu lated using the Honey asencio-Hop kins calcu maddy n, which is a valid ated novel metho d provi ding usha r accur acy than the Fried michael equat ion in the estim ation of LDL-C . Honye asencio SS et al. RICHMOND. 2013; 310(1 9): 2061- 2068 (http ://ed ucati on.Qu K[employer] [facility]. com/f aq/FA Q164) Not Available [facility] [address] [address] [place], [address], 03/20/2024 10:20:15 03/19/20 24 03/20/2024 LIPID PANEL , STAND CHLOE chol/HDLC ratio 2.2 (calc ) <5.0 normal Not Available [facility] [address] [address] [place], [address], 03/20/2024 10:20:15 03/19/20 24 03/20/2024 LIPID PANEL , STAND CHLOE non HDL cholesterol 70 mg/dL _(leyla c) <130 normal For patie nts with diabe rizwana plus 1 major ASCVD risk facto r, treat ing to a non-H DL-C goal of <100 mg/dL (LDL- C of <70 mg/dL ) is consi mandod a thera pejohn young optio n. Not Available [address] [address] [place], [address], 03/20/2024 10:20:15 03/19/20 24 03/20/2024 ALBUM IN, RANDO M URINE W/CRE ATINI NE creatinine, random urine 158 mg/dL 20-275 normal Not Available [address] [address] [place], [address], 03/20/2024 10:20:17 03/19/20 24 03/20/2024 ALBUM IN, RANDO M URINE W/CRE ATINI NE albumin, urine 0.7 mg/dL see note: normal Refer ence Range : Refer ence Range Not estab lishe d Not Available [address] [address] [facility] [place], [address], 03/20/2024 10:20:17 03/19/20 24 03/20/2024 ALBUM IN, RANDO M URINE W/CRE ATINI NE albumin/crea tinine ratio, random urine 4 mg/g_ creat <30 normal The ADA defin es abnor malit ies in album in excre tion as follo ws: Album inuri a Categ ory Resul t (mg/g creat inine ) Mariam l to Mildl y incre ased <30 Moder ately incre ased 30-29 9 Sever km incre ased > OR = 300 The ADA recom mends that at least two of three speci mens colle cted withi n a 3-6 month perio d be abnor mal befor e consi benjamin g a patie nt to be withi n a diagn ostic categ ory. Not Available [address] [address] [place], [address], 03/20/2024 10:20:17 03/19/20 24 03/20/2024 TSH+F REE T4 TSH 0.13 mIU/L 0.40-4 .50 low Not Available [address], [address], 03/20/2024 10:20:18 03/19/20 24 03/20/2024 TSH+F REE T4 T4, free 1.6 NG/dL 0.8-1. 8 normal Not Available [address], [address], 03/20/2024 10:20:18 03/19/20 24 03/20/2024 COMPR EHENS JOSE ARMANDO METAB OLIC PANEL glucose 100 mg/dL 65-99 high Fasti ng refer ence inter nehal For someo ne witho ut known diabe rizwana, a gluco se value betwe en 100 and 125 mg/dL is consi stent with predi abete s and shoul d be confi rmed with a follo w-up test. Not Available [address], [address], 03/20/2024 10:20:19 03/19/20 24 03/20/2024 COMPR EHENS JOSE ARMANDO METAB OLIC PANEL urea nitrogen (BUN) 10 mg/dL 7-25 normal Not Available [address], [address], 03/20/2024 10:20:19 03/19/20 24 03/20/2024 COMPR EHENS JOSE ARMANDO METAB OLIC PANEL creatinine 0.88 mg/dL 0.50-1 .05 normal Not Available [address] [address] [place], [address], 03/20/2024 10:20:19 03/19/20 24 03/20/2024 COMPR EHENS JOSE ARMANDO METAB OLIC PANEL eGFR 74 mL/mi n/1.7 3m2 > or = 60 normal Not Available [address], [address], 03/20/2024 10:20:19 03/19/20 24 03/20/2024 COMPR EHENS JOSE ARMANDO METAB OLIC PANEL BUN/creatini ne ratio SEE NOTE: (calc ) 6-22 Not Repor maria esther: BUN and Creat inine are withi n refer ence range . Not Available [address], [address], 03/20/2024 10:20:19 03/19/20 24 03/20/2024 COMPR EHENS JOSE ARMANDO METAB OLIC PANEL sodium 142 mmol/ L 135-14 6 normal Not Available [address], [address], 03/20/2024 10:20:19 03/19/20 24 03/20/2024 COMPR EHENS JOSE ARMANDO METAB OLIC PANEL potassium 4.2 mmol/ L 3.5-5. 3 normal Not Available [address], [address], 03/20/2024 10:20:19 03/19/20 24 03/20/2024 COMPR EHENS JOSE ARMANDO METAB OLIC PANEL chloride 104 mmol/ L 98-110 normal Not Available [address], [address], 03/20/2024 10:20:19 03/19/20 24 03/20/2024 COMPR EHENS JOSE ARMANDO METAB OLIC PANEL carbon dioxide 27 mmol/ L 20-32 normal Not Available [address], [address], 03/20/2024 10:20:19 03/19/20 24 03/20/2024 COMPR EHENS JOSE ARMANDO METAB OLIC PANEL calcium 9.4 mg/dL 8.6-10 .4 normal Not Available [address], [address], 03/20/2024 10:20:19 03/19/20 24 03/20/2024 COMPR EHENS JOSE ARMANDO METAB OLIC PANEL protein, total 6.6 g/dL 6.1-8. 1 normal Not Available [address], [address], 03/20/2024 10:20:19 03/19/20 24 03/20/2024 COMPR EHENS JOSE ARMANDO METAB OLIC PANEL albumin 4.4 g/dL 3.6-5. 1 normal Not Available [address], [address], 03/20/2024 10:20:19 03/19/20 24 03/20/2024 COMPR EHENS JOSE ARMANDO METAB OLIC PANEL globulin 2.2 g/dL_ (calc ) 1.9-3. 7 normal Not Available [address], [address], 03/20/2024 10:20:19 03/19/20 24 03/20/2024 COMPR EHENS JOSE ARMANDO METAB OLIC PANEL albumin/glob ulin ratio 2.0 (calc ) 1.0-2. 5 normal Not Available [address], [address], 03/20/2024 10:20:19 03/19/20 24 03/20/2024 COMPR EHENS JOSE ARMANDO METAB OLIC PANEL bilirubin, total 0.8 mg/dL 0.2-1. 2 normal Not Available [address], [address], 03/20/2024 10:20:19 03/19/20 24 03/20/2024 COMPR EHENS JOSE ARMANDO METAB OLIC PANEL alkaline phosphatase 77 U/L 37-153 normal Not Available [address] [address] [place], [address], 03/20/2024 10:20:19 03/19/20 24 03/20/2024 COMPR EHENS JOSE ARMANDO METAB OLIC PANEL AST 20 U/L 10-35 normal Not Available [address], [address], 03/20/2024 10:20:19 03/19/20 24 03/20/2024 COMPR EHENS JOSE ARMANDO METAB OLIC PANEL ALT 25 U/L 6-29 normal Not Available [address], [address], 03/20/2024 10:20:19 03/19/20 24 03/20/2024 CBC (INCL UDES DIFF/ PLT) white blood cell count 4.7 thous and/u L 3.8-10 .8 normal Not Available [address], [address], 03/20/2024 10:20:19 03/19/20 24 03/20/2024 CBC (INCL UDES DIFF/ PLT) red blood cell count 4.38 mayra on/uL 3.80-5 .10 normal Not Available [address], [address], 03/20/2024 10:20:19 03/19/20 24 03/20/2024 CBC (INCL UDES DIFF/ PLT) hemoglobin 13.9 g/dL 11.7-1 5.5 normal Not Available [address], [address], 03/20/2024 10:20:19 03/19/20 24 03/20/2024 CBC (INCL UDES DIFF/ PLT) hematocrit 43.3 % 35.0-4 5.0 normal Not Available [address], [address], 03/20/2024 10:20:19 03/19/20 24 03/20/2024 CBC (INCL UDES DIFF/ PLT) MCV 98.9 fL 80.0-1 00.0 normal Not Available [address], [address], 03/20/2024 10:20:19 03/19/20 24 03/20/2024 CBC (INCL UDES DIFF/ PLT) MCH 31.7 pg 27.0-3 3.0 normal Not Available [address], [address], 03/20/2024 10:20:19 03/19/20 24 03/20/2024 CBC (INCL UDES DIFF/ PLT) MCHC 32.1 g/dL 32.0-3 6.0 normal For adult s, a sligh t decre ase in the calcu lated MCHC value (in the range of 30 to 32 g/dL) is most likel y not clini destiney signi ficnichole t; kimberly er, it shoul d be inter prete d with cauti on in corre latio n with other red cell nawaf eters and the patie nt's clini leyla condi tion. Not Available [address], [address], 03/20/2024 10:20:19 03/19/20 24 03/20/2024 CBC (INCL UDES DIFF/ PLT) RDW 11.8 % 11.0-1 5.0 normal Not Available [address], [address], 03/20/2024 10:20:19 03/19/20 24 03/20/2024 CBC (INCL UDES DIFF/ PLT) platelet count 225 thous and/u L 140-40 0 normal Not Available [address], [address], 03/20/2024 10:20:19 03/19/20 24 03/20/2024 CBC (INCL UDES DIFF/ PLT) MPV 12.0 fL 7.5-12 .5 normal Not Available [address] [place], [address], 03/20/2024 10:20:19 03/19/20 24 03/20/2024 CBC (INCL UDES DIFF/ PLT) absolute neutrophils 2406 cells /uL 1500-7 800 normal Not Available [address] [place], [address], 03/20/2024 10:20:19 03/19/20 24 03/20/2024 CBC (INCL UDES DIFF/ PLT) absolute lymphocytes 1321 cells /uL 850-39 00 normal Not Available [address], [address], 03/20/2024 10:20:19 03/19/20 24 03/20/2024 CBC (INCL UDES DIFF/ PLT) absolute monocytes 456 cells /uL 200-95 0 normal Not Available [address], [address], 03/20/2024 10:20:19 03/19/20 24 03/20/2024 CBC (INCL UDES DIFF/ PLT) absolute eosinophils 465 cells /uL 15-500 normal Not Available [address], [address], 03/20/2024 10:20:19 03/19/20 24 03/20/2024 CBC (INCL UDES DIFF/ PLT) absolute basophils 52 cells /uL 0-200 normal Not Available [address], [address], 03/20/2024 10:20:19 03/19/20 24 03/20/2024 CBC (INCL UDES DIFF/ PLT) neutrophils 51.2 % normal Not Available [address], [address], 03/20/2024 10:20:19 03/19/20 24 03/20/2024 CBC (INCL UDES DIFF/ PLT) lymphocytes 28.1 % normal Not Available [facility] [address] [address], [place], [address], 03/20/2024 10:20:19 03/19/20 24 03/20/2024 CBC (INCL UDES DIFF/ PLT) monocytes 9.7 % normal Not Available [address], [address], 03/20/2024 10:20:19 03/19/20 24 03/20/2024 CBC (INCL UDES DIFF/ PLT) eosinophils 9.9 % normal Not Available [facility] [address], [address], 03/20/2024 10:20:19 03/19/20 24 03/20/2024 CBC (INCL UDES DIFF/ PLT) basophils 1.1 % normal Not Available [address], [address], 03/20/2024 10:20:19 03/19/20 24 03/20/2024 T3, FREE T3, free 3.6 pg/mL 2.3-4. 2 normal Not Available [address], [address], 03/20/2024 10:20:20 09/18/19 25 09/18/2024 LIPID PANEL , STAND CHLOE cholesterol, total 121 mg/dL <200 normal Not Available [address], [address], 09/18/2024 08:52:42 09/18/19 25 09/18/2024 LIPID PANEL , STAND CHLOE HDL cholesterol 59 mg/dL > or = 50 normal Not Available [address], [address], 09/18/2024 08:52:42 09/18/19 25 09/18/2024 LIPID PANEL , STAND CHLOE triglyceride s 68 mg/dL <150 normal Not Available [address] [place], [address], 09/18/2024 08:52:42 09/18/1909/18/2024 LIPID PANEL , STAND CHLOE LDL-choleste rol 48 mg/dL _(leyla c) normal Refer ence range : <100 Misty able range <100 mg/dL for prima ry preve ntion ; <70 mg/dL for patie nts with CHD or diabe tic patie nts with > or = 2 CHD risk facto rs. LDL-C is now calcu lated using the Honey n-Hop kins calcu latio n, which is a valid ated novel metho d provi yuko miller accur acy than the Fried michael equat ion in the estim ation of LDL-C . Honey asencio SS et al. RICHMOND. 2013; 310(1 9): 2061- 2068 (http ://ed ucati on.Diagnoplex. com/f aq/FA Q164) Not Available [facility] [address] [address] [address], [place], [address], 09/18/2024 08:52:42 09/18/1909/18/2024 LIPID PANEL , STAND CHLOE chol/HDLC ratio 2.1 (calc ) <5.0 normal Not Available [facility] [address] [address] , [place], [address], 09/18/2024 08:52:42 09/18/1909/18/2024 LIPID PANEL , STAND CHLOE non HDL cholesterol 62 mg/dL _(leyla c) <130 normal For patie nts with diabe rizwana plus 1 major ASCVD risk facto r, treat ing to a non-H DL-C goal of <100 mg/dL (LDL- C of <70 mg/dL ) is debbie young optio n. Not Available [facility] [address] [place], [address], 09/18/2024 08:52:42 06/28/20 25 09/18/2024 ALBUM IN, RANDO M URINE W/CRE ATINI NE creatinine, random urine 242 mg/dL 20-275 normal Not Available [address], [address], 09/18/2024 08:52:43 09/18/1909/18/2024 ALBUM IN RANDO M URINE W/CRE ATINI NE albumin, urine 0.9 mg/dL see note: normal Refer ence Range : Refer ence Range Not estab lishe d Not Available [address], [address], 09/18/2024 08:52:43 09/18/1909/18/2024 ALBUM IN RANDO M URINE W/CRE ATINI NE albumin/crea tinine ratio, random urine 4 mg/g_ creat <30 normal The ADA defin es abnor malit ies in album in excre tion as follo ws: Album inuri a Categ ory Resul t (mg/g creat inine ) Mariam l to Mildl y incre ased <30 Moder ately incre ased 30-29 9 Sever km incre ased > OR = 300 The ADA recom mends that at least two of three speci mens colle cted withi n a 3-6 month perio d be abnor mal befor e consi benjamin g a patie nt to be withi n a diagn ostic categ ory. Not Available [address], [address], 09/18/2024 08:52:43 09/18/1909/18/2024 TSH+F REE T4 TSH 0.51 mIU/L 0.40-4 .50 normal Not Available [address], [address], 09/18/2024 08:52:44 09/18/1909/18/2024 TSH+F REE T4 T4, free 1.4 NG/dL 0.8-1. 8 normal Not Available [address] [place], [address], 09/18/2024 08:52:44 09/18/1909/18/2024 COMPR EHENS JOSE ARMANDO METAB OLIC PANEL glucose 100 mg/dL 65-99 high Fasti ng refer ence inter nehal For someo ne witho ut known diabe rizwana, a gluco se value betwe en 100 and 125 mg/dL is consi stent with predi abete s and shoul d be confi rmed with a follo w-up test. Not Available [address], [address], 09/18/2024 08:52:45 09/18/1909/18/2024 COMPR EHENS JOSE ARMANDO METAB OLIC PANEL urea nitrogen (BUN) 12 mg/dL 7-25 normal Not Available [address], [address], 09/18/2024 08:52:45 09/18/1909/18/2024 COMPR EHENS JOSE ARMANDO METAB OLIC PANEL creatinine 0.75 mg/dL 0.50-1 .05 normal Not Available [address], [address], 09/18/2024 08:52:45 09/18/1909/18/2024 COMPR EHENS JOSE ARMANDO METAB OLIC PANEL eGFR 89 mL/mi n/1.7 3m2 > or = 60 normal Not Available [address], [address], 09/18/2024 08:52:45 09/18/1909/18/2024 COMPR EHENS JOSE ARMANDO METAB OLIC PANEL BUN/creatini ne ratio SEE NOTE: (calc ) 6-22 Not Repor maria esther: BUN and Creat inine are withi n refer ence range . Not Available [facility] [address], [address], 09/18/2024 08:52:45 09/18/1909/18/2024 COMPR EHENS JOSE ARMANDO METAB OLIC PANEL sodium 141 mmol/ L 135-14 6 normal Not Available [address], [address], 09/18/2024 08:52:45 09/18/1909/18/2024 COMPR EHENS JOSE ARMANDO METAB OLIC PANEL potassium 4.6 mmol/ L 3.5-5. 3 normal Not Available [address], [address], 09/18/2024 08:52:45 09/18/1909/18/2024 COMPR EHENS JOSE ARMANDO METAB OLIC PANEL chloride 105 mmol/ L 98-110 normal Not Available [address], [address], 09/18/2024 08:52:45 09/18/1909/18/2024 COMPR EHENS JOSE ARMANDO METAB OLIC PANEL carbon dioxide 28 mmol/ L 20-32 normal Not Available [address], [address], 09/18/2024 08:52:45 09/18/1909/18/2024 COMPR EHENS JOSE ARMANDO METAB OLIC PANEL calcium 9.5 mg/dL 8.6-10 .4 normal Not Available [address], [address], 09/18/2024 08:52:45 09/18/1909/18/2024 COMPR EHENS JOSE ARMANDO METAB OLIC PANEL protein, total 6.2 g/dL 6.1-8. 1 normal Not Available [address], [address], 09/18/2024 08:52:45 09/18/1909/18/2024 COMPR EHENS JOSE ARMANDO METAB OLIC PANEL albumin 4.3 g/dL 3.6-5. 1 normal Not Available [address], [address], 09/18/2024 08:52:45 09/18/1909/18/2024 COMPR EHENS JOSE ARMANDO METAB OLIC PANEL globulin 1.9 g/dL_ (calc ) 1.9-3. 7 normal Not Available [address], [address], 09/18/2024 08:52:45 09/18/1909/18/2024 COMPR EHENS JOSE ARMANDO METAB OLIC PANEL albumin/glob ulin ratio 2.3 (calc ) 1.0-2. 5 normal Not Available [address], [address], 09/18/2024 08:52:45 09/18/1909/18/2024 COMPR EHENS JOSE ARMANDO METAB OLIC PANEL bilirubin, total 0.9 mg/dL 0.2-1. 2 normal Not Available [address], [address], 09/18/2024 08:52:45 09/18/1909/18/2024 COMPR EHENS JOSE ARMANDO METAB OLIC PANEL alkaline phosphatase 62 U/L 37-153 normal Not Available [address], [address], 09/18/2024 08:52:45 09/18/1909/18/2024 COMPR EHENS JOSE ARMANDO METAB OLIC PANEL AST 22 U/L 10-35 normal Not Available [address], [address], 09/18/2024 08:52:45 09/18/1909/18/2024 COMPR EHENS JOSE ARMANDO METAB OLIC PANEL ALT 23 U/L 6-29 normal Not Available [address], [address], 09/18/2024 08:52:45 09/18/1909/18/2024 CBC (INCL UDES DIFF/ PLT) white blood cell count 3.8 thous and/u L 3.8-10 .8 normal Not Available [address], [address], 09/18/2024 08:52:45 09/18/1909/18/2024 CBC (INCL UDES DIFF/ PLT) red blood cell count 4.22 mayra on/uL 3.80-5 .10 normal Not Available [address], [address], 09/18/2024 08:52:45 09/18/1909/18/2024 CBC (INCL UDES DIFF/ PLT) hemoglobin 13.7 g/dL 11.7-1 5.5 normal Not Available [address], [address], 09/18/2024 08:52:45 09/18/1909/18/2024 CBC (INCL UDES DIFF/ PLT) hematocrit 42.2 % 35.0-4 5.0 normal Not Available [address], [address], 09/18/2024 08:52:45 09/18/1909/18/2024 CBC (INCL UDES DIFF/ PLT) MCV 100.0 fL 80.0-1 00.0 normal Not Available [address], [address], 09/18/2024 08:52:45 09/18/1909/18/2024 CBC (INCL UDES DIFF/ PLT) MCH 32.5 pg 27.0-3 3.0 normal Not Available [address], [address], 09/18/2024 08:52:45 09/18/1909/18/2024 CBC (INCL UDES DIFF/ PLT) MCHC 32.5 g/dL 32.0-3 6.0 normal For adult s, a sligh t decre ase in the calcu lated MCHC value (in the range of 30 to 32 g/dL) is most likel y not clini destiney rasheedi marco t; kimberly er, it shoul d be inter prete d with cauti on in [facility] n with other red cell nawaf eters and the patie nt's clini leyla condi tion. Not Available [facility] [address], [address], 09/18/2024 08:52:45 09/18/1909/18/2024 CBC (INCL UDES DIFF/ PLT) RDW 11.9 % 11.0-1 5.0 normal Not Available [facility] [address], [address], 09/18/2024 08:52:45 09/18/1909/18/2024 CBC (INCL UDES DIFF/ PLT) platelet count 208 thous and/u L 140-40 0 normal Not Available [address], [address], 09/18/2024 08:52:45 09/18/1909/18/2024 CBC (INCL UDES DIFF/ PLT) MPV 11.3 fL 7.5-12 .5 normal Not Available [address], [address], 09/18/2024 08:52:45 09/18/1909/18/2024 CBC (INCL UDES DIFF/ PLT) absolute neutrophils 1919 cells /uL 1500-7 800 normal Not Available [facility] [address], [address], 09/18/2024 08:52:45 09/18/1909/18/2024 CBC (INCL UDES DIFF/ PLT) absolute lymphocytes 1144 cells /uL 850-39 00 normal Not Available [facility] [address], [address], 09/18/2024 08:52:45 09/18/1909/18/2024 CBC (INCL UDES DIFF/ PLT) absolute monocytes 350 cells /uL 200-95 0 normal Not Available [address], [address], 09/18/2024 08:52:45 09/18/1909/18/2024 CBC (INCL UDES DIFF/ PLT) absolute eosinophils 357 cells /uL 15-500 normal Not Available [address], [address], 09/18/2024 08:52:45 09/18/1909/18/2024 CBC (INCL UDES DIFF/ PLT) absolute basophils 30 cells /uL 0-200 normal Not Available [address], [address], 09/18/2024 08:52:45 09/18/1909/18/2024 CBC (INCL UDES DIFF/ PLT) neutrophils 50.5 % normal Not Available [address], [address], 09/18/2024 08:52:45 09/18/1909/18/2024 CBC (INCL UDES DIFF/ PLT) lymphocytes 30.1 % normal Not Available [address], [address], 09/18/2024 08:52:45 09/18/1909/18/2024 CBC (INCL UDES DIFF/ PLT) monocytes 9.2 % normal Not Available [address], [address], 09/18/2024 08:52:45 09/18/1909/18/2024 CBC (INCL UDES DIFF/ PLT) eosinophils 9.4 % normal Not Available [address], [address], 09/18/2024 08:52:45 09/18/19 25 09/18/2024 CBC (INCL UDES DIFF/ PLT) basophils 0.8 % normal Not Available [facility] [id number] [place] [address], [address], 09/18/2024 08:52:45 09/18/19 25 09/18/2024 T3, FREE T3, free 2.7 pg/mL 2.3-4. 2 normal Not Available [facility] [address] [place], [address], 09/18/2024 08:52:46 04/28/19 23 04/26/2022 XR, chest , 2 view No observ ation record ed. [address] [facility] [address], [place], [address], 04/28/2022 12:12:09 04/28/19 23 04/28/2022 CT, angio gram, chest , w/ contr ast No observ ation record ed. [facility] [address], [place], [address], 05/19/2022 10:12:06 05/23/19 23 05/14/2022 justin metry testi ng* No observ ation record ed. [address], [facility] [address], [place], [address], 12/03/2022 14:05:01 10/04/19 23 10/03/2022 MAMMO , scree ramon, digit al, bilat eral No observ ation record ed. [address] [facility] [address], [place], [address], 12/03/2022 14:05:01 12/05/19 23 10/03/2022 bone densi ty No observ ation record ed. [address] [facility] [address], [place], [address], 08/11/2023 09:34:54 09/21/19 25 09/20/2024 pre/p ost bron hodil ator justin metry * No observ ation record ed. [facility], [facility] [address], [place], [address], 09/21/2024 10:34:45 10/12/19 25 10/11/2024 US, abdom inal aorta No observ ation record ed. [facility] [address], [place], [address], 10/12/2024 00:05:18 Result Notes None recorded. Problems Name Problem SNOMED Code Status Onset Date Resolution Date Notes Provider Name and Address Organization Details Recorded Time [facility] 36889859 [facility]othy[facility] 81334241 [facility] 08[facility]22 Sleep apnea 98056782 Active Belabull Rubio [facility] 6 08:48:33 Ex-smoker 2829073 Active 2016 Zee Navarrete MD [address], [place], [address], [facility] 7 15:46:27 Overweight 499162755 Active 2016 Zee Navarrete MD [address], [place], [address], [facility] 7 15:46:34 Vitamin D deficiency 64543047 Active 2016 Zee Navarrete MD [address], [place], [address], [facility] 7 15:47:22 Acute bronchitis 80401643 Active 2022 Augustus Blount MD [address], [place], [address], [facility] 3 18:43:51 Right sided chest pain 188416899 Active 2022 Augustus Blount MD [address], [place], [address], [facility] 3 18:46:40 Essential hypertension 84618251 Active 2022 Augustus Blount MD [address], [place], [address], [facility] 3 18:47:14 Atypical chest pain 488855002 Active 2022 Augustus Blount MD [address], [place], [address], [facility] 3 18:21:46 Nicotine dependence 38339254 Active 2022 Augustus Blount MD [address], [place], [address], [facility] 3 19:21:52 Expiratory wheezing 2648888 Active 2022 Augustus Blount MD [address], [place], [address], [facility] 3 13:54:41 Problem Notes None recorded. Procedures Surgical History Date Name Laterality Status Provider Name and Address Organization Details Recorded Time 10/04/19 23 Date of Last Mammogram completed Deisy Wise [facility] 2024 09:17:48 12/22/19 17 Date of Last Pap Smear completed Florinda Sosa [facility] 01/12/2017 15:32:11 10/20/19 12 Date of Last Colonoscopy completed Bela Rubio [facility] 12/04/2015 08:51:10 10/20/19 12 Colonoscopy completed Augustus Blount MD [address], [place], [address], [facility] 09/02/2016 01:53:55 tonsillectomy and adenoidectomy completed Augustus Blount MD [address], [place], [address], [facility] 01/12/2020 18:02:20 section completed Augustus bosch MD [address], [place], [address], [facility] 01/12/2020 18:02:53 ligation of bilateral fallopian tubes completed Augustus Blount MD [address], [place], [address], [facility] 01/12/2020 18:03:13 ligation of vein completed Augustus bosch MD [address], [place], [address], [facility] 01/12/2020 18:03:31 Arthroscopic Surgery completed Augustus Blount MD [address], [place], [address], [facility] 12/04/2015 13:43:44 Imaging Results None recorded. Procedure Notes None recorded. Medical Equipment None Reported. Allergies No known drug allergies Medications Name Sig Start Date Stop Date Status Note LastModified by Organization Details LastModified Time levothyro xine sodium 112 mcg tabs 11/27 completed Not Available Not Available Not Available ondansetr on hydrochlo ride 4 mg tabs 05/21 completed Not Available Not Available Not Available losartan 50 mg tablet Take 1 tablet every day by oral route. 2024 active Not Available Not Available Not Avai lable levothyro xine 137 mcg tablet TAKE 1 TABLET BY MOUTH ONCE DAILY - LABS NEEDED active Not Available Not Available No t Available venlafaxi ne 75 mg tablet 07/07 completed Not Available Not Available Not Available azithromy loren 250 mg tablet TAKE 2 TABLETS (500 MG) BY ORAL ROUTE ONCE DAILY FOR 1 DAY THEN 1 TABLET (250 MG) BY ORAL ROUTE ONCE DAILY FOR 4 DAYS 12/03 completed Not Available Not Available Not Available benzonata te 200 mg capsule Take 1 capsule 3 times a day by oral route. 05/04 completed Not Available Not Available Not Available medroxypr ogesteron e 2.5 mg tablet 07/07 completed Not Available Not Available Not Available hydrocodo ne 5 mg-acetam inophen 325 mg tablet 07/07 completed Not Available Not Available Not Available promethaz ine 6.25 mg-codein e 10 mg/5 mL syrup 5 ml once up to 3 times a day as needed; can cause drowsine ss 07/07 completed Not Available Not Available Not Available amlodipin e 2.5 mg tablet 09/10 completed Not Available Not Available Not Available phentermi ne 37.5 mg tablet TAKE 1 TABLET BY MOUTH EVERY DAY IN THE MORNING 05/21 completed pt refused a dosage increase for her amlodipi ne and was made aware that she will not get another refill on phenterm ine. Not Available Not Available Not Available amlodipin e 5 mg tablet TAKE 1 TABLET BY MOUTH ONCE DAILY active Not Available Not Available No t Available levothyro xine 100 mcg tablet TAKE 1 TABLET BY MOUTH DAILY 02/07 completed Not Available Not Available Not Available Zofran 4 mg tablet 1-2 tabs once, up to 3 times a day (preferr ably 2 hr prior to meals) 11/27 completed Not Available Not Available Not Available levothyro xine 125 mcg tablet TAKE 1 TABLET BY MOUTH ONCE DAILY active Not Available Not Available No t Available Cipro 500 mg tablet Take 1 tablet every 12 hours by oral route. 07/07 completed Not Available Not Available Not Available losartan 25 mg tablet TAKE 1 TABLET BY MOUTH ONCE DAILY IN THE EVENING 11/25 completed Not Available Not Available Not Available estradiol 0.5 mg tablet 07/07 completed Not Available Not Available Not Available methylpre dnisolone 4 mg tablets in a dose pack ud 12/03 completed Not Available Not Available Not Available albuterol sulfate HFA 90 mcg/actua tion aerosol inhaler INHALE 2 PUFFS BY MOUTH UP TO 4 TIMES DAILY NEEDED GO TO THE EMERGENC Y ROOM IF NO RELIEF AFTER THE FOURTH TREATMEN T active Not Available Not Available No t Available Vitamin D2 1,250 mcg (50,000 unit) capsule Take 1 capsule every week by oral route. 07/07 completed Not Available Not Available Not Available cefdinir 300 mg capsule Take 1 capsule every 12 hours by oral route. 05/14 completed Not Available Not Available Not Available metformin ER 500 mg tablet,ex tended release 24 hr Take 1 tablet by mouth twice daily 2024 active Not Available Not Available Not Avai lable levothyro xine 112 mcg tablet Take 1 tablet every day by oral route. 01/22 completed Not Available Not Available Not Available amoxicill in 875 mg-potass ium clavulana te 125 mg tablet TAKE 1 TABLET BY MOUTH EVERY 12 HOURS FOR 10 DAYS 02/06 completed Not Available Not Available Not Available rosuvasta tin 10 mg tablet Take 1 tablet every day by oral route in the evening. 2024 active Not Available Not Available Not Avai lable Mucinex 1,200 mg tablet, extended release Take 1 tablet every 12 hours by oral route. 02/06 completed Not Available Not Available Not Available Vitamin D3 125 mcg (5,000 unit) tablet Take by oral route. active Not Available Not Available No t Available Saxenda 3 mg/0.5 mL (18 mg/3 mL) subcutane ous pen injector 11/25 completed Not Available Not Available Not Available Women's 50 Plus Daily Formula 12/03 completed Not Available Not Available Not Available Belviq XR 20 mg tablet,ex tended release TAKE 1 TABLET BY MOUTH EVERY DAY IN THE MORNING 11/01 completed Not Available Not Available Not Available BD Ultra-Fin e Micro Pen Needle 32 gauge x 1/4 subcut once per day 11/27 completed Not Available Not Available Not Available Shingrix (PF) 50 mcg/0.5 mL intramusc ular suspensio n, kit 02/06 completed Not Available Not Available Not Available Imvexxy Maintenan ce Pack 10 mcg vaginal insert 11/25 completed Not Available Not Available Not Available ID NOW COVID-19 Test Kit TEST DIRECTED 11/25 completed Not Available Not Available Not Available Fluzone Quad (PF) 60 mcg (15 mcg x 4)/0.5 mL IM syringe PHARMACI ST ADMINIST ERED IMMUNIZA TION ADMINIST ERED AT TIME OF DISPENSI NG 02/06 completed Not Available Not Available Not Available Wegovy 0.25 mg/0.5 mL subcutane ous pen injector Inject 0.5 mL every week by subcutan eous route. 05/25 completed -- not covered Not Available Not Available Not Available Vitals Date Recorded Body height Body mass index (BMI) Body weight Respiratory rate Body temperature Heart rate Systolic And Diastolic Provider Name and Address Organization Details Last Updated DateTime 3 175.26 cm 44.7 kg/m2 082967. 49 g 16 /min 97.8 [degF] 68 /min 103/68 mm[Hg] [facility] 13:[facility]21 Date Recorded Body height Heart rate Respiratory rate Body temperature Body mass index (BMI) Body weight Systolic And Diastolic Provider Name and Address Organization Details Last Updated DateTime 4 175.26 cm 76 /min 16 /min 97.4 [degF] 45.5 kg/m2 135532. 45 g 134/81 mm[Hg] [facility] 4 08:56:54 Date Recorded Systolic And Diastolic Provider Name and Address Organization Details Last Updated DateTime 09/20/2024 128/80 mm[Hg] Augustus Blount MD [address], [place], [address] 09/20/2024 10:19:16 Date Recorded Body height Heart rate Respiratory rate Body temperature Body mass index (BMI) Body weight Provider Name and Address Organization Details Last Updated DateTime 5 175.26 cm 64 /min 16 /min 97.5 [degF] 40.2 kg/m2 749940. 12 g [facility] 5 09:23:49 Date Recorded Body height Heart rate Respiratory rate Body temperature Body mass index (BMI) Body weight Systolic And Diastolic Provider Name and Address Organization Details Last Updated DateTime 3 175.26 cm 61 /min 16 /min 98.1 [degF] 43.7 kg/m2 422399. 34 g 105/73 mm[Hg] Cristine Teofilo [facility] 3 13:08:48 Date Recorded Systolic And Diastolic Provider Name and Address Organization Details Last Updated DateTime 2024 122/83 mm[Hg] Augustus Blount MD [address], [place], [address] 2024 10:40:05 Date Recorded Body height Heart rate Respiratory rate Body temperature Body mass index (BMI) Body weight Provider Name and Address Organization Details Last Updated DateTime 4 175.26 cm 61 /min 16 /min 97.4 [degF] 42.4 kg/m2 227366. 01 sage Wise [facility] 4 09:17:10 Social History Question Answer Notes LastModified by Organizat ion Details LastModified Time Tobacco Smoking Status Former Smoker Quit August 2011. Bela dumont [facility] 12/04/2015 08:50:21 Do You Have An Advance Directive? Yes Information not available 05/20/2021 What Is Your Level Of Caffeine Consumption? Moderate Information not available 05/20/2021 How Much Tobacco Do You Chew? None Information not available 01/12/2020 What Is Your Code Status? Full Code Information not available 05/20/2021 In The 14 Days Before Symptom Onset, Have You Had Close Contact With A Laboratory-confir med COVID-19 While That Case Was Ill? No Information not available 05/20/2021 In The 14 Days Before Symptom Onset, Have You Had Close Contact With A Person Who Is Under Investigation For COVID-19 While That Person Was Ill? No Information not available 05/20/2021 Have You Been To An Area Known To Be High Risk For COVID-19? No Information not available 05/20/2021 What Type Of Diet Are You Following? REGULAR Information not available 05/20/2021 Which Illicit Or Recreational Drugs Have You Used? Occasional Information not available 01/12/2020 Hard Of Hearing Or Deaf In One Or Both Ears? No Information not available 05/20/2021 Live Alone Or With Others? With Others Information not available 05/20/2021 Marital Status Informatio n not available 05/20/2021 What Was The Date Of Your Most Recent Tobacco Screening? 09/20/2024 [email or web address] Information not available 09/20/2024 Seat Belts Used Routinely Yes Information not available 05/20/2021 Smoke Alarm In Home Yes Information not available 05/20/2021 At What Age Did You Start Smoking Tobacco? 17 Information not available 01/12/2020 How Much Tobacco Do You Smoke? 1.5 PPD Information not available 05/20/2021 How Many Years Have You Smoked Tobacco? 30 Information not available 05/20/2021 Sex: Unknown Functional Status Question Answer Note LastModified by Organizat ion Details LastModified Time What is your level of alcohol consumption? Occasional [email or web address] Information not available 12/04/2015 Do you or have you ever used smokeless tobacco? Never used smokeless tobacco Information not available 05/20/2021 Are you currently employed? Yes Information not available 05/20/2021 Are you able to care for yourself independently ? Yes Information not available 05/20/2021 What is your occupation? 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 Never used electronic cigarettes Information not available 05/20/2021 What is your exercise level? None Information not available 05/20/2021 Mental Status None recorded. Family History Relationship Description Onset Age of this Age Resolved Age Notes LastModified by Organization Details LastModified Time Maternal Grandmother Malignant tumor of breast [email or web address] Not available 03/2024 09:16:43 Father Mesothelioma (malignant, clinical disorder) 81 [email or web address] Not available 03/2024 09:16:43 Father Diabetes mellitus Not available 2020 18:55:47 Mother Malignant neoplasm of lung 52 [email or web address] Not available 03/2024 09:16:43 Paternal Grandmother Diabetes mellitus Not available 2020 18:55:47 Brother Diabetes mellitus Not available 2020 18:55:47 Notes:Heart disease DAD W/CH F Family history unchanged Diabetes mellitus -- DAD, 1 BROTHER & PATERNAL GM w/ DM Medical History Condition Response Other N Lung Disease N Cancer N Stroke N Bladder or Kidney Problems N High Cholesterol N Thyroid Problems N GI Problems N Anemia N Mental Illness N Diabetes N Seizures/Epilepsy N Heart Disease N Hypertension N Gynecological History Statement/Question Response Date of Last Pap Smear 12/21/2016 Date of Last Mammogram 10/03/2022 Date of Last Colonoscopy 10/20/2011 Obstetrics History GPAL:G 0 P 0 0 0 0 Immunizations Vaccine Type Date Status Note Provider Nam e and Address Organization Details Recorded Time zoster recombinant 1 completed Augustus Blount MD [address], [place], [address], [facility] 09/20/2024 10:13:28 Influenza, split virus, quadrivalent, preservative 0 [facility] 16:48:36 zoster recombinant 0 completed Vel Richion null, [facility] 05/20/2021 16:48:36 COVID-19, mRNA, LNP-S, PF, 30 mcg/0.3 mL dose 1 completed Augustus Blount MD [address], [place], [address], [facility] 05/20/2021 18:07:43 COVID-19, mRNA, LNP-S, PF, 30 mcg/0.3 mL dose 1 completed Augustus Blount MD [address], [place], [address], [facility] 05/20/2021 18:09:10 COVID-19, mRNA, LNP-S, PF, 30 mcg/0.3 mL dose 1 completed Augustus Blount MD [address], [place], [address], [facility] 05/20/2021 18:09:32 zoster live 4 completed Augustus Blount MD [address], [place], [address], [facility] 09/20/2024 10:14:13 Tdap 7 completed Not Available [employer] 04/23/2019 02:15:41 Influenza, split virus, quadrivalent, preservative 7 completed Vel Fraser [facility] 05/20/2021 16:48:36 Past Encounters Encounter ID Performer Location Encounter Start Date Encounter Closed Date Diagnosis/Indication Diagnosis SNOMED-CT Code Diagnosis ICD10 Code Diagnosis Note [id number] Augustus Blount MD [facility], [facility] [address] [place] [address] 12/04/2015 11:59:01 12/04/2015 13:58:04 Hypothyroidism 23897290 E03.9 Hyperlipidemia 32207653 E78.5 -- Was previously controlled with diet; will recheck cholestero l level again. Sleep apnea 42932522 G47 .30 -- pt does not want to be on CPAP; but patient will call me when she wants to get a home sleep study done. Vitamin D deficiency 347 67771 E55.9 Morbid obesity 522695376 E66.01 -- advised wt loss Elevated blood-pressure reading without diagnosis of hypertension 078048142 R03.0 -- nursing BP check in 3 weeks [id number] Zee Navarrete MD [place] [employer] [facility], [facility] [address] [facility] [address] [place] [address] 08/28/2016 14:47:43 08/28/2016 16:02:58 Acute urinary tract infection 952326543 N39.0 Vitamin D deficiency 347 35689 E55.9 Hypothyroidism 03495235 E03.9 Hyperlipidemia 17641337 E78.5 Overweight 060366773 E66 .3 Screening procedure 2012 5006 Z13.9 Fatigue 21340288 R53.83 Sleep apnea 99082399 G47 .30 not using CPAP [id number] Augustus Blount MD [place] [employer] [facility], [facility] [address] [place] [address] 01/12/2017 14:47:06 01/12/2017 16:11:27 Adult health examination 343281933 Z00.00 Hypothyroidism 65943788 E03.9 -- recheck lab(s) around 03/12/17 Hyperlipidemia 42694382 E78.5 -- Was previously controlled with diet; will recheck cholestero l level again.-- recheck lab(s) around 03/12/17 Sleep apnea 09526583 G47 .30 -- pt does not want to be on CPAP; but patient will call me when she wants to get a home sleep study done. Vitamin D deficiency 347 95175 E55.9 -- recheck lab(s) around 03/12/17 Body mass index 40+ - severely obese 440095637 Z68.41 -- advised weight loss-- pt's BMI today is 42.1 (ideal is between 20-25) Acute sinusitis 18846881 J01.90 Viral screening 10146665 4 Z11.59 -- recheck lab(s) around 03/12/17 Screening for malignant neoplasm of colon 165832216 Z12.11 -- pt had a normal screening colonoscop y w/ Dr Magdy Hampton on 10/20/11 Screening for malignant neoplasm of breast 657390103 Z12.31 Screening for malignant neoplasm of cervix 342954598 Z12.4 Menopause 221753982 Z78. 0 -- schedule DEXA to be done within 3 weeks [id number] Augustus Blount MD [place] [employer] [address] [place] [address] 04/14/2017 14:38:55 04/14/2017 16:41:17 Acute sinusitis 55716067 J01.90 -- resolved Hypothyroidism 32009097 E03.9 -- recheck lab(s) around 07/07/17 Sleep apnea 21829000 G47 .30 -- pt does not want to be on CPAP; but patient will call me when she wants to get a home sleep study done. Body mass index 40+ - severely obese 176735924 Z68.41 -- advised weight loss; pt gained 8# since her lastr visit-- pt's BMI today is 42.1 (ideal is between 20-25) Hyperlipidemia 60393446 E78.5 -- Was previously controlled with diet; will recheck cholestero l level again.-- recheck lab(s) around 07/07/17 Vitamin D deficiency 347 34587 E55.9 -- recheck lab(s) around 07/07/17 Viral screening 25220347 4 Z11.59 -- Hepatitis C antibody is nonreactiv e on 04/06/17 Screening for malignant neoplasm of colon 118156633 Z12.11 -- stool globin negative for occult blood on 04/06/17-- pt had a normal screening colonoscop y w/ Dr Magdy Hampton on 10/20/11 Screening for malignant neoplasm of breast 109955688 Z12.31 Screening for malignant neoplasm of cervix 467270987 Z12.4 -- pt reports she had a FINISHING [employer]AME [employer]NER exam by [employer] in [place] that was normal around 12/18/16 Menopause 300373816 Z78. 0 -- schedule DEXA to be done within 3 weeks [id number] Augustus Blount MD [employer] [address] [place] [address] 05/04/2017 09:07:27 05/04/2017 10:14:16 Body mass index 40+ - severely obese 792124853 Z68.41 -- advised weight loss; pt gained 1 # since her lastr visit-- pt's BMI today is 43.4 (ideal is between 20-25) [id number] MASSIMO GARCIA APN [employer] [address] [place] [address] 07/07/2017 09:39:37 07/07/2017 10:27:04 Hypothyroidism 32694755 E03.9 Hyperlipidemia 55151912 E78.00 Body mass index 40+ - severely obese 090021707 Z68.41 Vitamin D deficiency 347 24326 E55.9 [id number] Augustus Blount MD [employer] [employer] [address] [place] [address] 10/13/2017 09:17:10 10/13/2017 10:03:54 Body mass index 40+ - severely obese 392489234 Z68.41 -- advised weight loss; pt lost 21 # since her lastr visit-- pt's BMI today is 38.4 (ideal is between 20-25) Hypothyroidism 69856915 E03.9 -- recheck lab(s) around 12/29/17 Hyperlipidemia 53942839 E78.00 -- controlled with diet; will recheck cholestero l level periodical ly Vitamin D deficiency 347 82950 E55.9 -- repleated [id number] Augustus Blount MD [employer] [address] [place] [address] 01/13/2018 16:30:28 01/13/2018 18:58:24 Adult health examination 712547241 Z00.00 Hypothyroidism 26682585 E03.9 -- recheck lab(s) around 03/31/18 Hyperlipidemia 66127755 E78.00 -- Based on [facility] Cardiovasc ular Disease 10-year risk calculatio n of 2.2% on 10/04/17, no cholestero l med will be started.-- recheck lab(s) around 03/31/18 Vitamin D deficiency 347 61911 E55.9 -- repleated- - recheck lab(s) around 03/31/18 Sleep apnea 11522471 G47 .30 -- pt does not want to be on CPAP; but patient will call me when she wants to get a home sleep study done. Acute sinusitis 75731222 J01.90 -- resolved Screening for malignant neoplasm of colon 489014207 Z12.11 -- stool globin negative for occult blood on 04/06/17-- pt had a normal screening colonoscop y w/ Dr Magdy Hampton on 10/20/11 Screening for malignant neoplasm of breast 587392232 Z12.31 -- normal screening mammogram on 12/26/17 Screening for malignant neoplasm of cervix 989345782 Z12.4 -- pt reports she had a FINISHING FRAME [employer]NER exam by [employer] in [place] that was normal in Nov 2017 Menopause 578226304 Z78. 0 -- pt reports she had a normal DEXA (ordered by her FINISHING FRAME RUNNER) done on 12/26/17 at [facility] Hepatitis C screening 41 2696102 Z11.59 -- Hepatitis C antibody is nonreactiv e on 04/06/17 Active or passive immunization 391210514 Z23 -- pt reports she will be getting her Flu shot at work Body mass index 30+ - obesity 825591701 Z68.37 -- advised weight loss; pt lost 9 # since her lastr visit -- pt's BMI today is 37.1 (ideal is between 20-25)-- recheck lab(s) around 03/31/18 Benign ess ential hypertension 8380298 I10 -- uncontroll ed; will stop Phentermin e and issue DASH diet. [id number] MASSIMO GARCIA APN [place] [employer] [address] [place] [address] 02/07/2019 18:02:38 02/07/2019 18:48:33 Benign essential hypertension 1752440 I10 -- 142/90 Hypothyroidism 45482173 E03.9 last TSH 5.250 --- levothyrox ine 100mcg Hyperlipidemia 30998589 E78.00 -- LDL 111 - 02/01/19AS CVD risk box estimator 2.7% on labs from 01/2019 - Vitamin D deficiency 347 03124 E55.9 replete - 02/01/19 Body mass index 30+ - obesity 783975271 Z68.37 Menopause 204670798 Z78. 0 -- pt reports she had a normal DEXA (ordered by her FINISHING FRAME [employer]NER) done on 12/26/17 at [facility] Hepatitis C screening 41 3951291 Z11.59 -- Hepatitis C antibody is nonreactiv e on 04/06/17 Active or passive immunization 911276067 Z23 -- pt reports she will be getting her Flu shot at work Screening for malignant neoplasm of colon 687788397 Z12.11 -- stool globin negative for occult blood on 04/06/17-- pt had a normal screening colonoscop y w/ Dr Magdy Hampton on 10/20/11 - repeat in 10 years Screening for malignant neoplasm of breast 651886746 Z12.31 -- normal screening mammogram on 12/26/17-- [facility] - recently completed - abnormal in R and L - reschedule d for US in 01/2019 - Screening for malignant neoplasm of cervix 799712881 Z12.4 -- pt reports she had a FINISHING FRAME RUNNER exam by Dr. Resendiz 01/2019 Snoring 53465274 R06.83 -- never been dx with sleep apnea-- pt states insurance company will not pay for overnight stay or take home study to be tested [id number] Augustus Blount MD [facility] [address] [place] [address] 01/12/2020 16:14:25 01/12/2020 18:11:50 Acute sinusitis 29880890 J01.90 Benign ess ential hypertension 9623285 I10 -- check lab(s) within 7 days from 01/12/20 Hypothyroidism 38266611 E03.9 Hyperlipidemia 13176270 E78.00 -- check lab(s) within 7 days from 01/12/20 Vitamin D deficiency 347 09767 E55.9 -- check lab(s) within 7 days from 01/12/20 Body mass index 30+ - obesity 304468700 Z68.37 -- advised Menopause 074545707 Z78. 0 -- pt reports she had a normal DEXA (ordered by her FINISHING FRAME RUNNER) done on 12/26/17 at [facility] Hepatitis C screening 41 7204103 Z11.59 -- Hepatitis C antibody is nonreactiv e on 04/06/17 Active or passive immunization 067565290 Z23 -- pt reports she will be getting her Flu shot at work Screening for malignant neoplasm of colon 988468924 Z12.11 -- stool globin negative for occult blood on 04/06/17-- pt had a normal screening colonoscop y w/ Dr Magdy Hampton on 10/20/11 - repeat in 10 years Screening for malignant neoplasm of breast 559202490 Z12.31 -- normal screening mammogram on 12/26/17-- [facility] - recently completed - abnormal in R and L - reschedule d for US in 01/2019 - Screening for malignant neoplasm of cervix 934643084 Z12.4 -- pt reports she had a FINISHING FRAME RUNNER exam by Dr. Resendiz 01/2019 Snoring 48258362 R06.83 -- never been dx with sleep apnea-- pt states insurance company will not pay for overnight stay or take home study to be tested Depression screening 171 202380 Z13.31 -- negative for depression [id number] Augustus Blount MD [facility] [address] [place] [address] 02/07/2020 16:33:47 02/07/2020 18:27:49 Essential hypertension 37900683 I10 -- EKG done on 01/12/20-- recheck labs on 03/27/20 Hypothyroidism 84258112 E03.9 -- just increased Levothyrox ine from 112 mcg to --> 137 mcg 1 tab every AM. -- recheck labs on 03/27/20 Vitamin D deficiency 347 62116 E55.9 -- repleted Adult heal th examination 624017498 Z00.00 Hepatitis C screening 41 4448302 Z11.59 -- Hepatitis C antibody is nonreactiv e on 04/06/17 Active or passive immunization 605361850 Z23 -- current Screening for malignant neoplasm of colon 732991255 Z12.11 -- stool globin negative for occult blood on 04/06/17-- pt had a normal screening colonoscop y w/ Dr Magdy Hampton on 10/20/11 - repeat in 10 years Screening for malignant neoplasm of breast 200180831 Z12.31 -- mammogram done on 09/30/19 Screening for malignant neoplasm of cervix 005819279 Z12.4 -- pt reports she had a normal FINISHING FRAME RUNNER exam by Dr. Resendiz Dec 2018 Body mass index 40+ - severely obese 442499951 Z68.41 -- advised weight loss; pt gained 3 # since her lastr visit-- pt's BMI today is 42.7 (ideal is between 20-25) [id number] Augustus Blount MD [facility] [employer] [address] [place] [address] 10/29/2020 17:17:13 10/29/2020 19:06:27 Essential hypertension 45496583 I10 -- EKG done on 01/12/20-- recheck labs on 04/24/21 Hypothyroidism 09895722 E03.9 -- just increased Levothyrox ine from 112 mcg to --> 137 mcg 1 tab every AM.-- recheck labs on 04/24/21 Body mass index 40+ - severely obese 637113811 Z68.41 -- advised weight loss; pt gained 21 # since her lastr visit-- pt's BMI today is 42.7 (ideal is between 20-25) Hepatitis C screening 41 1470770 Z11.59 -- Hepatitis C antibody is nonreactiv e on 04/06/17 Active or passive immunization 516855359 Z23 -- current Screening for malignant neoplasm of colon 606824087 Z12.11 -- stool globin negative for occult blood on 04/06/17-- pt had a normal screening colonoscop y w/ Dr Magdy Hampton on 10/20/11 - repeat in 10 years Screening for malignant neoplasm of breast 874842333 Z12.31 -- pt agrees that her mammogram is to be ordered & managed by her Food Bagging Machine Operator Dr Kirstie Witt Screening for malignant neoplasm of cervix 469346788 Z12.4 -- pt reports she has FINISHING FRAME RUNNER exam appt w/ Dr. Resendiz in Nov 2020 Family his tory of diabetes mellitus 195822198 Z83.3 (dad & brother) -- check labs on 04/24/21593304 Augustus Blount MD [employer] [address] [place] [address] 05/20/2021 16:46:20 05/20/2021 18:24:01 Essential hypertension 65914582 I10 -- EKG done on 01/12/20-- recheck labs 6 months from last around Oct 2021 Hypothyroidism 18945525 E03.9 -- just increased Levothyrox ine from 112 mcg to --> 137 mcg 1 tab every AM.-- recheck labs 6 months from last Body mass index 40+ - severely obese 544032407 Z68.41 -- advised weight loss; pt lost 10 # since her last visit-- pt's BMI today is 44.3 (ideal is between 20-25) Family his tory of diabetes mellitus 533294877 Z83.3 (dad & brother) -- recheck labs 6 months from last Hepatitis C screening 41 3158605 Z11.59 -- Hepatitis C antibody is nonreactiv e on 04/06/17 Active or passive immunization 543639200 Z23 (pt had 2 pfizer covid shots followed by a Pfizer Booster on 03/13/21)- - pt reported she had Flu shot early this year 2021-- current Screening for malignant neoplasm of colon 006407831 Z12.11 -- stool globin negative for occult blood on 04/06/17-- pt had a normal screening colonoscop y w/ Dr Magdy Hampton on 10/20/11 - repeat in 10 years Screening for malignant neoplasm of breast 103315330 Z12.31 -- pt agrees that her mammogram is to be ordered & managed by her Food Bagging Machine Operator Dr Kirstie Witt Screening for malignant neoplasm of cervix 562237476 Z12.4 -- pt reports she has FINISHING FRAME RUNNER exam appt w/ Dr. Resendiz in Nov 2020 Adult heal th examination 473070497 Z00.00 [id number] Augustus Blount MD [employer] [address] [place] [address] 04/22/2022 16:47:02 04/22/2022 19:10:15 Acute bronchitis 64928350 J20.9 -- Pt had covid 1st time in Dec 2021.-- since then she has dry cough that has stayed Essential hypertension 50408973 I10 -- EKG done on 01/12/20-- recheck labs 6 months from last around Oct 2021 Hypothyroidism 63155056 E03.9 -- just increased Levothyrox ine from 112 mcg to --> 137 mcg 1 tab every AM.-- recheck labs 6 months from last Vitamin D deficiency 347 58248 E55.9 Diabetes m ellitus screening 904909363 Z13.1 (dad & brother have DM) Right side d chest pain 514696004 R07.89 Body mass index 40+ - severely obese 396921902 Z68.41 -- advised weight loss; pt gained 3 # since her last visit-- pt's BMI today is 44.7 (ideal is between 20-25) Hepatitis C screening 41 3760825 Z11.59 -- Hepatitis C antibody is nonreactiv e on 04/06/17 HIV screening 193142619 Z11.4 Active or passive immunization 034903576 Z23 (pt had 2 pfizer covid shots followed by a Pfizer Booster on 03/13/21)- - pt reported she had Flu shot early this year 2021-- current Screening for malignant neoplasm of colon 861665118 Z12.11 -- stool globin negative for occult blood on 04/06/17-- pt had a normal screening colonoscop y w/ Dr Magdy Hampton on 10/20/11 - repeat in 10 years Screening for malignant neoplasm of breast 522057351 Z12.31 -- pt agrees that her mammogram is to be ordered & managed by her Food Bagging Machine Operator Dr Kirstie Witt (last done on 09/16/21) Screening for malignant neoplasm of cervix 901272490 Z12.4 -- pt reports she has FINISHING FRAME RUNNER exam appt w/ Dr. Witt in Nov 2020 [id number] Augustus Blount MD [facility] [address] [place] [address] 12/03/2022 12:07:14 12/03/2022 14:24:06 Essential hypertension 80384065 I10 -- EKG done on 01/12/20-- recheck labs 6 months from last around Oct 2021 Hyperlipidemia 09256709 E78.00 Since pt smokes, her ASCVD risk calculatio n is 8.8% on 04/27/22. Advise pt:1) Quit Smoking.2) start Rosuvastat in 10 mg 1 tab daily. Recheck lab(s) on 07/09/22 Hypothyroidism 26938739 E03.9 -- just increased Levothyrox ine from 112 mcg to --> 137 mcg 1 tab every AM.-- recheck labs 6 months from last Vitamin D deficiency 347 89970 E55.9 Body mass index 40+ - severely obese 263116161 Z68.41 -- advised weight loss; pt lost 7 # since her last visit-- pt's BMI today is 43.7 (ideal is between 20-25) Hepatitis C screening 41 9695633 Z11.59 -- Hepatitis C antibody is nonreactiv e on 04/06/17 HIV screening 895039391 Z11.4 Active or passive immunization 398080432 Z23 (pt had 2 pfizer covid shots followed by a Pfizer Booster on 03/13/21)- - pt reported she had Flu shot early this year 2021-- current Screening for malignant neoplasm of colon 328378755 Z12.11 -- stool globin negative for occult blood on 04/06/17-- pt had a normal screening colonoscop y w/ Dr Magdy Hampton on 10/20/11 - repeat in 10 years Screening for malignant neoplasm of breast 025270852 Z12.31 -- pt agrees that her mammogram is to be ordered & managed by her Food Bagging Machine Operator Dr Kirstie Witt (last done on 10/03/22) Gynecologi c examination 40848598 Z01.419 -- pt reported she had a normal Food Bagging Machine Operator exam around September [address] Gutierrez's office Adult [facility] th examination 082166954 Z00.00 Screening for osteoporosis 472239734 Z13.820 [id number] Augustus Blount MD [facility] [address] [place] [address] 08/11/2023 08:40:40 08/11/2023 09:52:05 Essential hypertension 74912566 I10 -- EKG done on 01/12/20-- recheck labs 6 months from last around Oct 2021 Hyperlipidemia 38169699 E78.00 Since pt smokes, her ASCVD risk calculatio n is 8.8% on 04/27/22. Advise pt:1) Quit Smoking.2) start Rosuvastat in 10 mg 1 tab daily. Recheck lab(s) on 07/09/22 Hypothyroidism 17678945 E03.9 -- just increased Levothyrox ine from 112 mcg to --> 137 mcg 1 tab every AM.-- recheck labs 6 months from last Vitamin D deficiency 347 80095 E55.9 -- repleted Body mass index 40+ - severely obese 323907950 Z68.42 -- advised weight loss; pt gained 12 # since her last visit-- pt's BMI today is 45.5 (ideal is between 20-25) Screening for osteoporosis 218694642 Z13.820 -- normal bone density on 10/03/22 Hepatitis C screening 41 2030716 Z11.59 -- Hepatitis C antibody is nonreactiv e on 04/06/17 HIV screening 942170366 Z11.4 -- tested negative for HIV on 12/13/22 Active or passive immunization 858375000 Z23 (pt had 2 pfizer covid shots followed by a Pfizer Booster on 03/13/21)- - pt reported she had Flu shot early this year 2021-- current Screening for malignant neoplasm of colon 101016035 Z12.11 -- gastroente rologist Dr Earl Sevilla recommends repeating colonoscop y 3 years from 02/06/23 Screening for malignant neoplasm of breast 047931488 Z12.31 -- pt agrees that her mammogram is to be ordered & managed by her Food Bagging Machine Operator Dr Kirstie Witt (last done on 10/03/22) Gynecologi c examination 48514382 Z01.419 -- pt reported she had a normal Food Bagging Machine Operator exam around September [address] Gutierrez's office [id number] Augustus Blount MD [facility] [address] [place] [address] 2024 09:00:32 2024 10:48:05 Adult health examination 535322172 Z00.00 Essential hypertension 37757544 I10 -- EKG done on 01/12/20-- recheck labs 09/15/24 Hyperlipidemia 52622052 E78.00 Since pt smokes, her ASCVD risk calculatio n is 8.8% on 04/27/22. Advise pt:1) Quit Smoking.2) start Rosuvastat in 10 mg 1 tab daily.-- recheck labs 09/15/24 Hypothyroidism 72672532 E03.9 -- just increased Levothyrox ine from 112 mcg to --> 137 mcg 1 tab every AM.-- recheck labs 09/15/24 Vitamin D deficiency 347 25129 E55.9 -- recheck labs 09/15/24 Body mass index 40+ - severely obese 860147610 Z68.41 -- advised weight loss; pt lost 21 # since her last visit-- pt's BMI today is 42.4 (ideal is between 20-25) Screening for osteoporosis 161123381 Z13.820 -- normal bone density on 10/03/22 Hepatitis C screening 41 0787721 Z11.59 -- Hepatitis C antibody is nonreactiv e on 04/06/17 HIV screening 815758410 Z11.4 -- tested negative for HIV on 12/13/22 Active or passive immunization 613919058 Z23 (pt had 2 pfizer covid shots followed by a Pfizer Booster on 03/13/21)- - pt reported she had Flu shot in Fall 2023 (while at work in [place]) Screening for malignant neoplasm of colon 994192705 Z12.11 -- gastroente rologist Dr Earl Sevilla recommends repeating colonoscop y 3 years from 02/06/23 Screening for malignant neoplasm of breast 564318066 Z12.31 -- pt agrees that her mammogram is to be ordered & managed by her Food Bagging Machine Operator Dr Kirstie Witt (last done around Oct 2023) Gynecologi c examination 43551306 Z01.419 -- pt reported she had a normal Food Bagging Machine Operator exam around September [address] Gutierrez's office [id number] Augustus Blount MD [facility] [address] [place] [address] 09/20/2024 09:14:53 09/20/2024 11:14:07 Essential hypertension 47453486 I10 -- EKG done on 01/12/20-- recheck labs 03/18/25 Hyperlipidemia 22372702 E78.00 Since pt smokes, her ASCVD risk calculatio n is 8.8% on 04/27/22. Advise pt:1) Quit Smoking.2) start Rosuvastat in 10 mg 1 tab daily. Current ASCVD risk calculatio n is 4.3% (09/20/24) -- recheck labs 03/18/25 Hypothyroidism 15266183 E03.9 -- just increased Levothyrox ine from 112 mcg to --> 137 mcg 1 tab every AM.-- recheck labs 03/18/25 Vitamin D deficiency 347 01578 E55.9 -- recheck labs 03/18/25 Body mass index 40+ - severely obese 983802929 Z68.41 -- advised weight loss; pt lost 15 # since her last visit-- pt's BMI today is 40.2 (ideal is between 20-25) Screening for osteoporosis 662380515 Z13.820 -- normal bone density on 10/03/22-- due for repeat DEXA on 10/03/24 Hepatitis C screening 41 6017144 Z11.59 -- Hepatitis C antibody is nonreactiv e on 04/06/17 HIV screening 926257236 Z11.4 -- tested negative for HIV on 12/13/22 Active or passive immunization 518284217 Z23 (pt had 2 pfizer covid shots followed by a Pfizer Booster on 03/13/21)- - pt reported she had Flu shot in Fall 2023 (while at work in [place]) Screening for malignant neoplasm of colon 924407474 Z12.11 -- gastroente rologist Dr Earl Sevilla recommends repeating colonoscop y 3 years from 02/06/23 Screening for malignant neoplasm of breast 028626645 Z12.31 -- pt agrees that her mammogram is to be ordered & managed by her Food Bagging Machine Operator Dr Kirstie Witt (last done around Oct 2023)-- pt has already scheduled appt for mammogram for 10/11/24 Gynecologi c examination 05564140 Z01.419 -- pt reported she had a normal Food Bagging Machine Operator exam around May [address] Gutierrez's office Ex-cigarette smoker 9742 56117 Z87.891 -- 1.5 ppd x 20 years-- Chest CTA on 04/28/22 was unrevealin g Mild chron ic obstructive pulmonary disease 255251461 J44.9 Health Concerns Section Related Observation LastModified by Organization Detai ls LastModified Time None Recorded Concern Status LastModified by Organization Details LastModified Time None Recorded Advance Directives Directive Y: Payers Insurance Date Sequence Insurance Name Policy Number Policy Triplett Covered Member ID Triplett Member ID Guarantor Name 09/14/2024 1 [facility] Sabine S Kilzer [id number] Sabine S Kilzer 04/14/2017 1 *SELF PAY* Co lleen S Kilzer 09/20/2024 1 [facility] [id number] Sabine S Kilzer [id number] Sabine S Kilzer 05/19/2019 1 *SELF PAY* Co lleen S Kilzer 09/14/2024 1 [facility] [id number] Sabine S Kilzer [id number] Sabine S Kilzer 09/14/2024 1 [facility] [id number] Sabine S Kilzer [id number] Sabine S Kilzer 09/14/2024 1 [facility] [id number] Sabine S Kilzer [id number] Sabine S Kilzer Notes Date Note Type Note Provider Name and Address Organization Details Recorded Time 05/14/2022 text/html Pt comes in for cough and occasional wheezing. No f/c, no chest discomfort, no NOLAND/SOB. Chest CTA on 04/28/22 was unrevealng. Not Available Not Available Not Available 12/03/2022 text/html Pt comes in for f/u of HTM, HLD, Hypothyroidism, and weight. Pt is also due for her annual PE. Pt feels well and has no c/o. Pt has no new sx and no increasing sx. Patient denies any jaw or neck discomfort, left arm pain/left arm discomfort, chest discomfort/pain, diaphoresis, breathing symptoms/chest tightness, indigestion sx, n/v, any angina equivalent symptoms, etc. Augustus Blount MD [address] [facility] [address], [place], [address], [facility] 12/03/2022 14:13:53 08/11/2023 text/html Pt comes in for f/u of HTN, HLD, Hypothyroidism, Vit D def, and weight monitoring. Pt feels well and has no c/o. Pt has no new sx and no increasing sx. Patient denies any jaw or neck discomfort, left arm pain/left arm discomfort, chest discomfort/pain, diaphoresis, breathing symptoms/chest tightness, indigestion sx, n/v, any angina equivalent symptoms, etc. Augustus Blount MD [address] [facility] [address], [place], [address], [facility] 08/11/2023 09:41:49 2024 text/html Pt comes in for f/u of HTN, HLD, Hypothyroidism, Vit D def, and weight monitoring. Pt is also due for her annual PE. Pt feels well and has no c/o. Pt has no new sx and no increasing sx. Patient denies any jaw or neck discomfort, left arm pain/left arm discomfort, chest discomfort/pain, diaphoresis, breathing symptoms/chest tightness, indigestion sx, n/v, any angina equivalent symptoms, etc. Augustus Blount MD [address] [facility] [address], [place], [address], [facility] 09/20/2024 09:49:13 09/20/2024 text/html Pt comes in for f/u of HTN, HLD, Hypothyroidism, COPD, and weight monitoring. Pt feels well and has no c/o. Pt has no new sx and no increasing sx. Patient denies any jaw or neck discomfort, left arm pain/left arm discomfort, chest discomfort/pain, diaphoresis, breathing symptoms/chest tightness, indigestion sx, n/v, any angina equivalent symptoms, etc. Augustus Blount MD [address] [facility] [address], [place], [address], [facility] 09/20/2024 10:30:52 OBGyn Episode No OBEpisode recorded.
--- OUTSIDE RECORDS SUMMARY | 2024-10-14 11:50 | XMS_ITS | Clinical Summary ---
Author Organization [facility] Address [address] [place] [address] Care Team Providers Care Gear Grinder Name Role Phone Unavailable Primary Care Provider Unavailabl e Immunizations Immunization Administration Dates Next Due Covid-19, Mrna, Lnp-s, Pf, 30 Mcg/0.3 Ml Dose (P fizer) 03/13/2021 Social History Tobacco Use Types Packs/Day Years Used Date Smoking Tobacco: Never Assessed Comments Unknown Sex and Gender Information Value Date Recorded Sex Assigned at Not on file Legal Sex Female 4:58 AM CDT Gender Identity Not on file Sexual Orientation Not on file Plan of Treatment Health Maintenance Due Date Last Done Comments Hepatitis C Virus (HCV) Screening 1961 Pap Smear 1982 Cervical Cancer Screening (CCS) 1991 HPV/Cotest 1991 Cologuard 2006 Colonoscopy 2006 Colorectal Cancer Screening 2006 Immunochemical Fecal Occult Blood 2006 Pneumococcal Immunization (5 0+ years) (1 of 1 - PCV) 2011 SARS-COV-2 Immunization ( season) 2023 03/13/2021, 04/19/2020, 03/29/2020 Influenza Immunization (#1) 11/21/202407/2020, 01/29/2020 Respiratory Syncytial Virus (RSV) Immunization (Adult) (1 - 1-dose 75+ series) 2036 DTaP/Tdap/Td Immunization Discontinued 07/08/2016 TdaP Immunization Completed 07/08/2016 Zoster Immunization Completed 03/31/2020, 01/29/2020, 06/22/2014 Hepatitis B Immunization Aged Out No longer eligible based on patient's age to complete this topic Human Papillomavirus (HPV) Immunization Aged Out No longer eligible based on patient's age to complete this topic Meningococcal Immunization (ACWY) Aged Out No longer eligible based on patient's age to complete this topic Rotavirus Immunization Aged Out No lo nger eligible based on patient's age to complete this topic
--- OUTSIDE RECORDS SUMMARY | 2024-10-14 11:50 | XMS_ITS | Encounter Summary ---
Author Organization [facility] Care Team Providers Care Electric Sign Assembler Name Role Phone Augustus Blount MD Primary Care Provider [phone] Encounter Details Date Type Department Care Team (Latest Contact Info) Description 07/05/2015 Orders Only [facility]INCON[facility] ProviderValentino MD [address] [place] [id number] Social History Tobacco Use Types Packs/Day Years Used Date Smoking Tobacco: Never Assessed Comments Unknown Sex and Gender Information Value Date Recorded Sex Assigned at Not on file Legal Sex Female 7:19 PM RECORDS CUSTODIAN Gender Identity Female 04/18/2020 12:02 PM RECORDS CUSTODIAN Sexual Orientation Not on file documented as of this encounter Plan of Treatment Not on file documented as of this encounter Procedures Procedure Name Priority Date/Time Associated Diagnosis Comments PROCEDURE - RESULT 07/05/2015 12 :00 AM CDT documented in this encounter Results * PROCEDURE - RESULT (07/05/2015 12:00 AM CDT) Narrative 07/05/2015 12:00 AM CDT Ordered by an unspecified provider. Historical Provider Final Res ult documented in this encounter Visit Diagnoses Not on filedocumented in this encounter Care Teams Electric Sign Assembler Relationship Specialty Start Date End Date Augustus Blount MD [address] [place] [address] PCP - General Internal Medicine 1/15/21 documented as of this encounter
--- OUTSIDE RECORDS SUMMARY | 2024-10-14 11:50 | XMS_ITS | Referral Summary ---
Author Organization [facility] Address [address] [place] [address] Care Team Providers Care Director Of Loss Prevention Name Role Phone Augustus Blount MD Primary Care Provider Allergies No known active allergies Medications amLODIPine (NORVASC) 5 mg tablet amlodipine 5 mg tablet TAKE 1 TABLET BY MOUTH EVERY DAY Active cholecalciferol (VITAMIN D-3) 5,000 unit tablet Vitamin D3 125 mcg (5,000 unit) tablet Take by oral route. Active Imvexxy Maintenance Pack 10 mcg insert vaginal insert Active levothyroxine (SYNTHROID) 137 mcg tablet levothyroxine 137 mcg tablet TAKE 1 TABLET BY MOUTH EVERY DAY Active losartan (COZAAR) 25 mg tablet losartan 25 mg tablet TAKE 1 TABLET BY MOUTH EVERY EVENING Active Active Problems Problem Noted Date Diagnosed Date Abnormal findings on diagnostic imaging of breas t 04/18/2020 Social History Tobacco Use Types Packs/Day Years Used Date Smoking Tobacco: Never Personal Safety Answer Date Recorded Getting School Help Needed Not on file 06/06 Comments Unknown Sex and Gender Information Value Date Recorded Sex Assigned at Not on file Legal Sex Female 7:19 PM SACK CLEANING HAND Gender Identity Female 04/18/2020 12:02 PM SACK CLEANING HAND Sexual Orientation Not on file Last Filed Vital Signs Vital Sign Reading Time Taken Comments Blood Pressure 131/74 07/16/2015 6:55 AM CDT Pulse 59 07/16/2015 6:55 AM CDT Temperature 36.2 C (97.2 F) 07/16/2015 6:55 AM CDT Respiratory Rate - - Oxygen Saturation 95% 07/16/2015 6:55 AM CDT Inhaled Oxygen Concentration - - Weight 129.3 kg (285 lb) 04/18/2020 12:11 PM SACK CLEANING HAND Height 177.8 cm (5' 10) 04/18/2020 12:11 PM SACK CLEANING HAND Body Mass Index 40.89 04/18/2020 12:11 PM SACK CLEANING HAND Plan of Treatment Not on file Insurance [employer] [facility] Care Teams Director Of Loss Prevention Relationship Specialty Start Date End Date Augustus Blount MD [address] [facility] [address] [place] [address] PCP - General Internal Medicine 04/06/20
--- OUTSIDE RECORDS SUMMARY | 2024-10-14 11:50 | XMS_ITS | Encounter Summary ---
Author Organization [facility] Care Team Providers Care Table Inspector Name Role Phone Augustus Blount MD Primary Care Provider [phone] Encounter Details Date Type Department Care Team (Latest Contact Info) Description 07/17/2015 Orders Only [facility] CLINCONV ProviderValentino MD [address] [place] [id number] Social History Tobacco Use Types Packs/Day Years Used Date Smoking Tobacco: Never Assessed Comments Unknown Sex and Gender Information Value Date Recorded Sex Assigned at Not on file Legal Sex Female 7:19 PM CUTTER DOWN Gender Identity Female 04/18/2020 12:02 PM CUTTER DOWN Sexual Orientation Not on file documented as of this encounter Plan of Treatment Not on file documented as of this encounter Procedures Procedure Name Priority Date/Time Associated Diagnosis Comments PROCEDURE - RESULT 07/17/2015 12 :00 AM CDT documented in this encounter Results * PROCEDURE - RESULT (07/17/2015 12:00 AM CDT) Narrative 07/17/2015 12:00 AM CDT Ordered by an unspecified provider. Historical Provider Final Res ult documented in this encounter Visit Diagnoses Not on filedocumented in this encounter Care Teams Table Inspector Relationship Specialty Start Date End Date Augustus Blount MD [address] [place] [address] PCP - General Internal Medicine 1/15/21 documented as of this encounter
--- OUTSIDE RECORDS SUMMARY | 2024-10-14 11:50 | XMS_ITS | Clinical Summary ---
Author Organization [facility] Address [address] [place] [address] Care Team Providers Care Regional Program Manager Name Role Phone Augustus Blount MD Primary Care Provider [phone] Allergies No known active allergies Medications amLODIPine [...] on file Legal Sex Female 7:19 PM TWISTER IN Gender Identity Female 04/18/2020 12:02 PM TWISTER IN Sexual Orientation Not on file Obstetrics History Last Filed Vital Signs Vital Sign Reading Time Taken Comments Blood Pressure 131/74 07/16/2015 6:55 AM CDT Pulse 59 07/16/2015 6:55 AM CDT Temperature 36.2 C (97.2 F) 07/16/2015 6:55 AM CDT Respiratory Rate - - Oxygen Saturation 95% 07/16/2015 6:55 AM CDT Inhaled Oxygen Concentration - - Weight 129.3 kg (285 lb) 04/18/2020 12:11 PM TWISTER IN Height 177.8 cm (5' 10) 04/18/2020 12:11 PM TWISTER IN Body Mass Index 40.89 04/18/2020 12:11 PM TWISTER IN Plan of Treatment Not on file Insurance [place] [employer] [facility] Care Teams Regional Program Manager Relationship Specialty Start Date End Date Augustus Blount MD [address] [place] [address] [address] [place] [address] PCP - General Internal Medicine 04/06/20
--- OUTSIDE RECORDS SUMMARY | 2024-10-14 11:50 | XMS_ITS | Data Portability ---
[facility] [address] [place] [address] Assessment No assessment recorded. Plan of Treatment Reminders Order Date Submit Date Provider Last Modified By Organization Details Last Modified Time Details Appointments None recorded. Lab pap, IG + HPV, cervical 2016 017 [facility], [address] [place] [address], [address], [place], [address], 7 06:15:23 Referral None recorded. Procedures None recorded. Surgeries None recorded. Imaging MAMMO, screening, bilateral 2016 017 [facility] (Imaging), [address] [place] [address] [address], [address], 7 05:31:39 Medication Orders fluconazol e 150 mg tablet 2016 017 INTER[facility], [address], [place], [address], 7 10:39:21 Patient TargetsNo targets recorded. Patient Instructions Encounter Date Encounter Id Patient Instructions Last Modified By Organization Details Last Modified Time 12/16/2016 [id number] vaginal yeast infection: care instructions [email or web address] Not available 12/16/2016 10:41:26 Reason for Referral None Reported. Results Created Date Observation Date Name Description Value Unit Range Abnormal Flag Note LastModifiedBy Organization Detail LastModifiedTime 12/17/19 17 12/17/2016 pap, IG + HPV, cervi leyla diagnosis: Commen t NEGAT JOSE ARMANDO FOR INTRA EPITH ELIAL DIANE Marmolejo AND AARTI MENDOZA . CELLU LAR HARRIS ES ASSOC IATED WITH INFLA MMATI ON ARE PRESE NT. Not Available [facility] ([facility]) [address] [place], [address], 12/18/2016 06:15:23 12/17/19 17 12/17/2016 pap, IG + HPV, cervi leyla specimen adequacy: Wyatt devi Satis facto ry for evalu ation . Endoc ervic al and/o r squam ous metap lasti c cells (endo cervi leyla compo nent) are prese nt. Not Available [facility] ([facility]) [address] [place], [address], 12/18/2016 06:15:23 12/17/19 17 12/17/2016 pap, IG + HPV, cervi leyla clinician provided ICD10: Wyatt devi Z01.4 11 Not Available [facility] ([facility]) [address] [place], [address], 12/18/2016 06:15:23 12/17/19 17 12/17/2016 pap, IG + HPV, cervi leyla performed by: Wyatt [place], Candido devi (ASCP ) Not Available [facility] ([facility]) [address] [place], [address], 12/18/2016 06:15:23 12/17/19 17 12/17/2016 pap, IG + HPV, cervi leyla . . Not Available [facility] ([facility]) [address] [place], [address], 12/18/2016 06:15:23 12/17/19 17 12/17/2016 pap, IG + HPV, cervi leyla note: Wyatt devi The Pap smear is a scree ramon test desig carmela to aid in the detec tion of zach ligna nt and malig nant condi tions of the uteri ne cervi x. It is not a diagn ostic proce dure and shoul d not be used as the sole means of detec ting cervi leyla cance r. Both false -posi tive and false -nega tive repor ts do occur . Not Available [facility] ([facility]) [address] [facility], [place], [address], 12/18/2016 06:15:23 12/17/19 17 12/17/2016 pap, IG + HPV, cervi leyla test methodology: Commen t This liqui d based ThinP rep(R ) pap test was scree carmela with the use of an image guide doug systkaci tinajero. Not Available [facility] ([facility]) [address] [facility], [place], [address], 12/18/2016 06:15:23 12/17/19 17 12/18/2016 pap, IG + HPV, cervi leyla HPV aptima Negati ve negati ve This test detec ts fourt een high- risk HPV types (16/1 8/31/ 33/35 /39/4 5/ 51/52 /56/5 8/59/ 66/68 ) witho ut diffe renti ation . Not Available [facility] ([facility]) [address] [facility], [place], [address], 12/18/2016 06:15:23 12/17/19 17 12/16/2016 MAMMO , scree ramon, bilat eral No observ ation record ed. [facility] ([facility]) [address] [place] [address] [address], [place], [address], 12/19/2016 14:04:02 Result Notes None recorded. Problems Name Problem SNOMED Code Status Onset Date Resolution Date Notes Provider Name and Address Organization Details Recorded Time Hyperthyroidism 07719491 Active 2016 TRUMAN Bui [facility] 7 10:26:34 Problem Notes None recorded. Procedures Surgical History Date Name Laterality Status Provider Name and Address Organization Details Recorded Time 4 Unlisted px vascular surgery completed Sukhwinder Vincent [facility] 12/16/2016 10:20:48 3 Tubal Ligation completed Sukhwinder Vincent [facility] 7 10:19:43 9 Caesarean Section completed Sukhwinder Ciro [facility] 12/16/2016 10:20:25 9 Dilation and Curettage completed Sukhwinder Tanner [facility] 12/16/2016 10:20:10 Imaging Results None recorded. Procedure Notes None recorded. Medical Equipment None Reported. Allergies No known drug allergies Medications Name Sig Start Date Stop Date Status Note LastModified by Organization Details LastModified Time fluconazole 150 mg tablet Take 1 tablet by oral route. 2016 active Not Available Not Available Not Avai lable medroxyprogeste hadley 2.5 mg tablet Take 2 tablets every day by oral route. active Not Available Not Available No t Available levothyroxine 100 mcg tablet Take 1 tablet every day by oral route. active Not Available Not Available No t Available estradiol 0.5 mg tablet Take 1 tablet every day by oral route. active Not Available Not Available No t Available Vitamin D2 1,250 mcg (50,000 unit) capsule Take 1 capsule every week by oral route. active Not Available Not Available No t Available Vitals Date Recorded Systolic And Diastolic Provider Name and Address Organization Details Last Updated DateTime 12/16/2016 124/84 mm[Hg] Mary Lou Munroe PA-C Attn: [facility],[address] [place], [address], [facility] 12/16/2016 10:34:51 Date Recorded Heart rate Respiratory rate Body temperature Body height Body mass index (BMI) Body weight Systolic And Diastolic Provider Name and Address Organization Details Last Updated DateTime 7 76 /min 16 /min 98 [degF] 177.8 cm 40.5 kg/m2 704820. 45 g 138/98 mm[Hg] Sukhwidnerpelon Tanner [facility] 7 10:22:49 Social History Question Answer Notes LastModified by Organizat ion Details LastModified Time Tobacco Smoking Status Former Smoker Sukhwinder Tanner julia [facility] 12/16/2016 10:17:01 Do You Have An Advance Directive? No Information not available 12/16/2016 What Is Your Level Of Caffeine Consumption? Heavy Information not available 12/16/2016 How Much Tobacco Do You Chew? None Information not available 12/16/2016 What Type Of Diet Are You Following? REGULAR Information not available 12/16/2016 Education 2 Year College Information not available 12/16/2016 Are There Any Guns Present In Your Home? Yes Information not available 12/16/2016 Hard Of Hearing Or Deaf In One Or Both Ears? No Information not available 12/16/2016 Legally Blind In One Or Both Eyes? No Information not available 12/16/2016 Marital Status Informatio n not available 12/16/2016 What Was The Date Of Your Most Recent Tobacco Screening? 12/16/2016 Information not available 10/14/2018 Performs Monthly Self-breast Exam? No Information not available 12/16/2016 Seat Belts Used Routinely Yes Information not available 12/16/2016 Smoke Alarm In Home Yes Information not available 12/16/2016 How Much Tobacco Do You Smoke? No Information not available 12/16/2016 General Stress Level Medium Information not available 12/16/2016 Do You Use Sunscreen Routinely? Yes Information not available 12/16/2016 Sex: Unknown Functional Status Question Answer Note LastModified by Organizat ion Details LastModified Time What is your level of alcohol consumption? Occasional Information not available 12/16/2016 What is your exercise level? Occasional Information not available 12/16/2016 Mental Status None recorded. Family History Relationship Description Onset Age of this Age Resolved Age Notes LastModified by Organization Details LastModified Time Father Diabetes mellitus Not available 2016 10:16:26 Father Heart disease Not available 2016 10:16:35 Father Hypertensive disorder Not available 2016 10:16:40 Father Malignant neoplasm of lung Not available 2016 10:16:53 Mother Malignant neoplasm of lung Not available 2016 10:16:53 Medical History Condition Response Coronary Artery Disease N Other N Atrial Fibrillation N High Blood Pressure N Depression N COPD N Blood Clots N Anxiety Disorder N Muscle, Joint, or Bone Problems N Acid Reflux (GERD) N Cancer N Stroke N High Cholesterol N Liver Disease N Headaches N Kidney or Bladder Problems N Thyroid Problems Y GI Problems N Skin Problems N Anemia N Heart Attack (CO) N Diabetes N Seizures/Epilepsy N Asthma N Allergies N Hepatitis N Heart Failure N Osteoporosis N Gynecological History Statement/Question Response Menses Monthly N If Post Menopausal, Age at Menopause 54 Age at Menarche 15 Age at First Child 22 Obstetrics History GPAL:G 3 P 2 0 1 2 Type Value Full Term 2 Induced 1 Living 2 Total 3 Past Encounters Encounter ID Performer Location Encounter Start Date Encounter Closed Date Diagnosis/Indication Diagnosis SNOMED-CT Code Diagnosis ICD10 Code Diagnosis Note [id number] MD Ray Foster (Adult Med) [address] [place] [address] 12/16/2016 09:55:51 12/16/2016 10:45:45 Candidiasis of vagina 52653384 B37.3 Screening for malignant neoplasm of breast 921352788 Z12.31 Gynecologi c examination 70571802 Z01.411 ibccp: CBE and pap smear Obesity 972198823 E66.9 Advised 30 minutes of exercise 5 days/week Advised to not drink her calories Advised 3 balanced meals/day with plenty of fruits and vegetables Health Concerns Section Related Observation LastModified by Organization Detai ls LastModified Time None Recorded Concern Status LastModified by Organization Details LastModified Time None Recorded Advance Directives Directive N: Payers Insurance Date Sequence Insurance Name Policy Number Policy Triplett Covered Member ID Triplett Member ID Guarantor Name 12/16/2016 [facility] Sabine Holder [id number] Sabine Holder Notes Date Note Type Note Provider Name and Address Organization Details Recorded Time 7 text/html Annual GYNReported by PatientGenitourinary symptomsFor urinary symptoms, patient reportsno hematuriaandno incontinence. For vulva, patient reportsno genital lesion. For vagina, patient reportsnormal vaginal discharge. For menstrual cycle, (post menopausal).Breast symptomsFor breast, patient reportsno breast pain,no breast lump, andno nipple discharge.ContraceptionFo r current contraception, patient reportsmonogamous relationship.Endocrine symptomsFor sexual complaints, patient reportspain during intercourse (vaginal dryness)anddecreased libidobut reportsno sexual complaints. For menopausal symptoms, patient reportsno menopausal symptomsandnormal vaginal lubrication.Psychological symptomsFor psychological symptoms, patient reportsno depression,no anxiety, andno pmdd.Preventative measuresFor preventive measures, patient reportsencourage self breast examination,encourage regular exercise, andencourage no tobacco use.ROS as noted in the HPI 56YO female here for IBCCP CBE and pap smear. States that her grandmother was dx'ed with breast cancer at age 81 (maternal grandmother) Denies personal hx/o breast cancer. Denies personal or family hx/o uterine, ovarian, or cervical cancers. Denies hx/o abnormal pap smears. States that her last one was at Dr. Witt's office and normal. Last mammogram WNL last year. Denies hx/o abnormal mammograms. Mary Lou Munroe PA-C Attn: [employer] [place], [address], [facility] 12/16/2016 10:53:18 OBGyn Episode Ob Episode Information Episode Created Date Number of Fetuses Patient Bloodtype Patient rh Status Prepregnancy Weight lbs Domestic Partner Domestic Partner Phone Father Name Claims Technician Status 12/17/19 17 1 CLOSED Fetus Data First Name Last Name Admitted to NICU Weight (g) Sex Living Outcome Pediatric Complications Fetus ID Race Codes Race Delivery Type [id number] Zak Calculation Initial Zak Date Initial Exam Date Initial Exam Provider Initial Ultrasound Date Last Menstrual Period Date Ultra Sound Weeks Gestation 0 Eighteen To Twenty Week Zak Update Ultra Sound Date Fundal Height At Umbil Quickening Date Ultra Sound Latest Weeks Gestation Final Zak Confirmed By Final Zak Confirmed Date Final Zak Date Ultra Sound Latest Days Gestation 0 0 Menstrual History Last Menstrual Date Menses Monthly On Bcp Conception Prior Menses Frequency Hcg Plus Date Menarche Onset Age Delivery Information Delivery Date Delivery Type Labor Anesthesia Weeks Gestation Incision Type Labor Labor Length Hrs Delivered By Post Complications Tubal Sterilization Discharge Date Comments 3 Discharge Information Feeding Method Contraceptive Method Maternal HG B and HCT Levels Ob Episode Information Episode Created Date Number of Fetuses Patient Bloodtype Patient rh Status Prepregnancy Weight lbs Domestic Partner Domestic Partner Phone Father Name Claims Technician Status 12/17/19 17 1 CLOSED Fetus Data First Name Last Name Admitted to NICU Weight (g) Sex Living Outcome Pediatric Complications Fetus ID Race Codes Race Delivery Type [id number] Zak Calculation Initial Zak Date Initial Exam Date Initial Exam Provider Initial Ultrasound Date Last Menstrual Period Date Ultra Sound Weeks Gestation 0 Eighteen To Twenty Week Zak Update Ultra Sound Date Fundal Height At Umbil Quickening Date Ultra Sound Latest Weeks Gestation Final Zak Confirmed By Final Zak Confirmed Date Final Zak Date Ultra Sound Latest Days Gestation 0 0 Menstrual History Last Menstrual Date Menses Monthly On Bcp Conception Prior Menses Frequency Hcg Plus Date Menarche Onset Age Delivery Information Delivery Date Delivery Type Labor Anesthesia Weeks Gestation Incision Type Labor Labor Length Hrs Delivered By Post Complications Tubal Sterilization Discharge Date Comments 9 Discharge Information Feeding Method Contraceptive Method Maternal HG B and HCT Levels
== END 2024-10-14 11:46 | disposition home or self-care (01) ==
LOC: CHSIMG 11:48
PROVIDERS: PCP Nurse Practitioner; Visit Provider Nurse Practitioner
DX: Z12.2 Encounter for screening for malignant neoplasm of respiratory organs (principal); Z87.891 Personal history of nicotine dependence; Z78.0 Asymptomatic menopausal state; Z12.31 Encounter for screening mammogram for malignant neoplasm of breast; R92.8 Other abnormal and inconclusive findings on diagnostic imaging of breast; K80.20 Calculus of gallbladder without cholecystitis without obstruction; J47.9 Bronchiectasis, uncomplicated
CPT/HCPCS: 71271; 77063; 77067; 77080

== ENCOUNTER 2024-10-18 07:51 | Outpatient (CLI) | payer BC, SELFPAY ==
--- NOTE | ~2024-10-18 | MMUS_ITS ---
EXAMINATION: MM diagnostic marisela RT w alba, US breast RT limited HISTORY: Follow-up right breast asymmetry TECHNIQUE: Additional 3-D tomosynthesis images of the right breast were performed and synthetic 2-D i mages were generated. CAD analysis was submitted and interpreted. High resolution Limited right breas t ultrasound was performed. COMPARISON: Comparison to multiple prior studies sequentially, with oldest reviewed study dated 04/03. BREAST PARENCHYMAL COMPOSITION: Not dense: There are scattered areas of fibroglandular density. FINDINGS: MAMMOGRAPHIC FINDINGS: There is persistent focal asymmetry in the upper outer quadrant of the right breast, middle third. Th ere are no suspicious calcifications or architectural distortion. No discrete mass identified. ULTRASOUND: Limited right breast ultrasound: Normal heterogeneous echotexture in the right breast without discret e mass. IMPRESSION: 1. Probable benign focal asymmetry of the right breast in the upper outer quadrant without sonographi c correlate. 2. Recommend 6 month follow-up diagnostic right mammogram BI-RADS category 3, probably benign findings. Reviewed, dictated and finalized at location [] IMPRESSION: 1. Probable benign focal asymmetry of the right breast in the upper outer quadr ant without sonographic correlate. 2. Recommend 6 month follow-up diagnostic right mammogram BI-RADS category 3, probably benign findings.
== END 2024-10-18 07:52 | disposition home or self-care (01) ==
LOC: MICIMG 07:52
PROVIDERS: PCP Obstetrics & Gynecology Gynecology; Visit Provider Obstetrics & Gynecology Gynecology
DX: R92.8 Other abnormal and inconclusive findings on diagnostic imaging of breast (principal)
CPT/HCPCS: 76642; 77061; 77065; G0279